=== PATIENT | female | born 1980 | race Caucasian/White ===

== ENCOUNTER 2018-09-06 15:58 | Inpatient (IN) ==
[2018-09-06] MEDS ORDERED: Bisacodyl 10 MG Supp RECTAL PRN (17:40)
[2018-09-06] MEDS ORDERED: Aluminum/Magnesium/Simethacone Susp 30 ML UDC PO PRN (17:40)
[2018-09-06] MEDS: Levothyroxine 75 MCG Tablet PO SCH (18:44)
[2018-09-06] MEDS: amLODIPine 5 MG Tablet PO SCH (18:50)
[2018-09-06] MEDS: Senna/Docusate Sodium 8.6/50 MG Tablet PO SCH (22:43)
[2018-09-06] MEDS: Carvedilol 6.25 MG Tablet PO SCH (22:43)
[2018-09-06] MEDS: QUEtiapine 25 MG Tablet PO SCH (22:48)
[2018-09-07] MEDS: Levothyroxine 75 MCG Tablet PO SCH (06:37)
[2018-09-07] MEDS: Senna/Docusate Sodium 8.6/50 MG Tablet PO SCH ×2 (08:52→21:29)
[2018-09-07] MEDS: QUEtiapine 25 MG Tablet PO SCH ×2 (08:52→21:30)
[2018-09-07] MEDS: Carvedilol 6.25 MG Tablet PO SCH ×2 (08:52→21:30)
[2018-09-07] MEDS: amLODIPine 5 MG Tablet PO SCH (08:53)
[2018-09-07 10:17] LABS: Anion Gap 8 meq/L (5-15); Blood Urea Nitrogen 5 mg/dL (7-18); Calcium 8.3 mg/dL (8.5-10.1); Carbon Dioxide 25.4 meq/L (21.0-32.0); Chloride 110 meq/L (98-107); Glomerular Filtration Rate Greater Than 89 mL/min (>89); Glucose,Random 84 mg/dL (74-106); Potassium 3.4 meq/L (3.5-5.1); Sodium 143 meq/L (136-145)
[2018-09-07 10:19] LABS: Cholesterol 154 mg/dL (120-200)
[2018-09-07 10:22] LABS: Chol/HDL Ratio 6.66 Ratio; HDL Cholesterol 23.1 mg/dL (40.0-60.0); LDL Cholesterol,Calculated 94 mg/dL (0-99); Triglycerides 187 mg/dL (42-150)
--- NOTE | 2018-09-07 11:24 | P.HPPSY ---
Provisional Diagnosis Admission Date: September 06, 2018 16:20 [place] I.: Unspecified psychosis Competence Certification of Person's Competence To Provide Express and Informed Consent I have personally examined Lorraine Abernathy, a person being served at [facility] on, September 07, 2018 1118. Express and informed consent means consent voluntarily given in writing, by a competent person, after sufficient explanation and disclosure of the subject matter involved to enable the person to make a knowing and willful decision without any element of force, fraud, deceit, duress, or other form of constraint or coercion. This person is 18 years of age or older, is not now known to be incompetent to consent to treatment with a guardian advocate, and does not have a health care surrogate or proxy currently making medical treatment decisions. I have found this person to be one of the following: [] Competent to provide express and informed consent, as defined above, for voluntary admission to this facility and is competent to provide express and informed consent for treatment. He/she has the consistent capacity to make well reasoned, willful, and knowing decisions concerning his or her medical or mental health treatment. The person fully and consistently understands the purpose of the admission for examination/placement and is fully capable of personally exercising all rights assured [place] Incompetent to provide express and informed consent to voluntary admission, and this is incompetent to provide express and informed consent to treatment. The person must be transferred to involuntary status and a petition for a guardian advocate filed with the Circuit Court. [x] Refusing to provide express and informed consent to voluntary admission but is competent to provide express and informed consent for treatment. The person must be discharged or transferred to involuntary status. Form shall be completed within 24 hours of a person's arrival at the receiving facility and filed in the clinical record of each person: 1. Admitted on a voluntary basis 2. Permitted to provide express and informed consent to his/her own treatment 3. Allowed to transfer from involuntary to voluntary status 4. Prior to permitting a person to consent to his or her own treatment after having been previously found incompetent to consent to treatment. History of Present Illness Capacity: Has capacity History of Present Illness: 08/30/2018 The patient is a 38-year-old woman, domiciled in [place], single, no kids, employed, with a psychiatric history of anxiety, no previous psychiatric hospitalizations, no pre-suicide attempts, alcohol use disorder, she is on Xanax 1 mg 3 times daily prescribed by PCP, medical history of hypertension, who has been depressed recently after the of her father presents for an evaluation of altered mental status. Her friend and neighbor went over to check on her and found her on the ground. She states the dog that was in the house had peed in the house multiple times which is unusual. She was last seen normal Saturday which was 5 days ago. The patient apparently has prescriptions for Xanax. No other history is readily available as the patient' s initial GCS for paramedics was 11. In the emergency department her GCS was 10 and she was intubated for an airway protection by ED attending. Patient was intubated yesterday. Renal function is improving with Cr: 2.45 from 3.57. She was consulted to psychiatry to address suicidal ideation. On my psychiatric evaluation I found the patient alert, calm, superficially cooperative. The patient is quite confused, she answered questions, but she seems to be not reliable. She tells me that she is in the brother house. Tells me that she is now in [facility] and she is here at her brother's house in a family meeting. She does not know the reason of hospitalization. Patient is completely disoriented in time and place. She tells me that we are in [birth year], 1991. She does report to be in a good mood, he denies use of alcohol and misuse of Xanax. She actually tells me that she does not use any alcohol. She denies suicidal and homicidal ideation, she denies visual and auditory hallucinations. At times the patient seems to be a little bit expansive, with cleopatra loosening of associations and poor contact with reality. There is also some attention deficit and fluctuation of consciousness. Collateral information from her sister Daksha Hernandez, , who reports that the patient has been depressed since April when her father . She says that her sister has been down the heel, drinking more alcohol every day and most probably misusing Xanax. She reports that this is the first time that the patient becomes so altered and psychotic. She says that the patient does not have any reports a psychiatric history. 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 09/03/2018 The patient was seen today for psychiatric reevaluation. She was in the process of getting physical therapy. Ro, next of kin, was at bedside. My psychiatric evaluation the patient continues to show labile mood, she seems to be more organized and cooperative than before, but still disorganized, with moments of confusion, tangentiality, delusional thinking, but able to report good mood, denies depression, denies anxiety, denies melina and psychosis. She denies suicidal and homicidal ideation, denies visual and auditory hallucinations. As per Ro, the patient definitely much improved , she clarifies that the patient has being increasingly drinking more alcohol lately, she has been depressed the last month, but usually the patient has a very good sense of humor. She also confirms that the patient at times seems to be quite confused and psychotic. 09/06/2017 patient was seen today for psychiatric evaluation in the [facility] psych unit. The patient continues to be disorganized, quite tangential, with a very inappropriate affect. She reports to feel very happy, she says that she does not remember the reason she is here for. She says that she is here to pickle cutter her dog and basis of friends. She is oriented in person, disoriented in time and place. She thinks that we are in June 1984. On Mini-Mental the patient is able to repeat 3 words, remembered 2 of then 5 minutes later. She shows a good registration, good abstraction, naming, but decreased concentration , impaired executive function. Final score is 22/30. She denies suicidal and homicidal ideation, she denies visual and auditory hallucinations. I try to speak with the patient about suicidal attempt by overdosing with alcohol and Xanax, but she is unable to recall any information about that event. PPHx: Anxiety, she is on Xanax 1 mg 3 times daily, prescribed by PCP, no pre- suicide attempts, no previous psychiatric hospitalization PMHx: Hypertension Family Hx: No family psychiatric Substance Hx: She drinks alcohol Social Hx: Patient was born and raised in [facility], she is single , domiciled in [place], no kids, employed, her highest level of education is a nursing degree - Inpatient Certification I certify that the inpatient services were ordered in accordance with Medicare regulations governing the order. This includes certification that hospital inpatient services are reasonable and necessary and in the case of services not specified as inpatient-only under 42 CFR 419.22(n), that they are appropriately provided as inpatient services in accordance to with the 2-midnight benchmark under 43 CFR 412.3(e) I certify that inpatient psychiatric hospital services are medically necessary. Evaluation and treatment and/or diagnostic testing are expected to improve the patient's condition. The patient needs on a daily basis, active treatment furnished directly by or requiring the supervision of inpatient psychiatric facility personnel. Estimated Total Length of Stay (Days): 7 Plans for Post Hospital Care: Home Review of Systems All other systems reviewed negative except as stated in HPI Psychiatric: Reports confusion, Reports irritability PMFSH - History History Provided By: Patient, Medical Record - Medical History Medical History: Medical History (Last Updated 09/06/18 @ 12:31 by Sandra Berry) Alcohol abuse Anxiety Depression Medical history unknown Surgical history unknown - Tobacco History Second Hand Smoke Exposure: No Smoking Status: Unknown if ever smoked - Alcohol History How Often Do You Have a Drink Containing Alcohol: Unable to Obtain - Substance Use History Substance History: No History of Abuse, Unable to Obtain - Travel History History of Recent Travel: No - Immunization History Tetanus Immunization: Unable to Assess Hx Influenza Vaccine This Season: Unable to Assess Medications and Allergies Active Medications: Active Medications Al Hydrox/Mg Hydrox/Simethicone (Mag-Al Plus Susp Liq) 30 ml PO Q6H PRN PRN Reason: DYSPEPSIA Al Hydroxide/Mg Hydroxide (Milk Of Magnesia Liq) 30 ml PO Q12H PRN PRN Reason: Mild Constipation Amlodipine Besylate (Norvasc) 5 mg PO DAILY [facility] Last Admin: 09/07/18 08:53 Dose: Not Given Bisacodyl (Dulcolax Supp) 10 mg RECTAL DAILY PRN PRN Reason: SEVERE CONSITIPATION Carvedilol (Coreg) 6.25 mg PO BID [facility] Last Admin: 09/07/18 08:52 Dose: 6.25 mg Clonidine HCl (Catapres) 0.2 mg PO TID [facility] Last Admin: 09/07/18 08:53 Dose: Not Given Lactulose (Lactulose Liq) 30 ml PO DAILY PRN PRN Reason: SEVERE CONSITIPATION Levothyroxine Sodium (Synthroid) 75 mcg PO DAILY@0600 [facility] Last Admin: 09/07/18 06:37 Dose: 75 mcg Quetiapine Fumarate (Seroquel) 25 mg PO BID [facility] Last Admin: 09/07/18 08:52 Dose: 25 mg Senna/Docusate Sodium (Pamela-Colace) 1 tab PO BID [facility] Last Admin: 09/07/18 08:52 Dose: 1 tab Sennosides (Senokot) 17.2 mg PO Q12H PRN PRN Reason: Moderate Constipation Thiamine HCl (Vitamin B1) 100 mg PO DAILY [facility] Last Admin: 09/07/18 08:51 Dose: 100 mg Allergies Allergy/AdvReac Type Severity Reaction Status Date / Time No Known Allergies Allergy Uncoded 04/18/15 15:02 Home Medications Medication Instructions Recorded Confirmed Type carvedilol 6.25 mg PO BID 09/03/18 09/03/18 History levothyroxine 75 mcg PO DAILY 09/03/18 09/03/18 History Results - Labs CBC & Chem 7: 09/07/18 09:16 Labs: Laboratory Results - last 24 hr 09/07/18 09:16 Sodium 143 Potassium 3.4 L Chloride 110 H Carbon Dioxide 25.4 Anion Gap 8 BUN 5 L Creatinine 0.71 Estimated GFR Greater than 89 Random Glucose 84 Calcium 8.3 L Triglycerides 187 H Cholesterol 154 LDL Cholesterol, Calc 94 HDL Cholesterol 23.1 L Cholesterol/HDL Ratio 6.66 Exam Vital signs: Vital Signs 09/06/18 18:04 Temperature 98.8 F Pulse Rate 102 H Respiratory Rate 18 Blood Pressure 132/92 H Pulse Oximetry 97 Mental Status Examination Appearance: Appropriate Consciousness: Alert Orientation: Person Motor Activity: Normal gait Speech: Unremarkable Language: Adequate Fund of Knowledge: Adequate Attention and Concentration: Adequate Memory: Impaired Mood: Appropriate Affect: Appropriate Thought Process & Associations: Loose associations, Disorganized Thought Content: Appropriate Hallucination Type: None Delusion Type: None, Bizarre Suicidal Ideation: No Suicidal Plan: No Suicidal Intention: No Homicidal Ideation: No Homicidal Plan: No Homicidal Intention: No Insight: Poor Judgment: Poor Assessment and Plan - Plan Plan: On my psychiatric evaluation today I find a patient that is just superficially cooperative, guarded, quite confused and disorganized. The patient is unable to tell me the reason of her hospitalization, she is oriented in person, but completely disoriented in time and place, she is very talkative, but most of her communication is through confabulations. She has loosening of associations , poor contact with the reality, attention deficit, no excessive fluctuation of consciousness. She denies suicidal and homicidal ideation, she denies auditory hallucinations, denies visual hallucinations, however the nurse in charge states that the patient has been responding to internal stimuli and talking with people that are not present. Current presentation seems to be related with new onset psychosis that could be secondary to alcohol/benzodiazepine withdrawal, but a primary psychotic illness decompensation need to be rule out. As per sister collateral information, the patient has been depressed for the last 2 months after the of her father. He has a psychiatric history of anxiety, alcohol use disorder, but no previous reported psychiatric admissions or suicidal attempts. At this moment the patient will continue on the Lynn act , given her level of psychosis she is considered to be a danger to self and others, but also high risk of self neglecting behavior. Transfer the patient to psychiatry was medically stable. We will start Seroquel 25 mg twice daily for psychosis. Order CIWA protocol for benzodiazepine alcohol induced withdrawal. Can use Haldol 5 mg IM/IV every 8 hours as needed aggressive behavior or agitation. QTC is 450 now. If QTC increases over 460 I recommend to stop antipsychotics. Justification for Continued Inpatient Stay: Continue admission
[2018-09-07 12:04] LABS: Hemoglobin A1c 4.9 % (4.3-6.0)
--- NOTE | 2018-09-07 14:07 | P.CONIM ---
History of Present Illness Service: [facility] Consult date: 09/07/18 Requesting Physician: Nehemias Ortega Reason for Consult: Tachycardia, AMS Primary Care Provider: UNKNOWN Chief Complaint: Leg pain, shortness of breath History of Present Illness: 38-year-old female with history of hypertension, hypothyroidism, anxiety, depression, alcohol abuse, initially admitted to [facility] on 08/26/18 after being found on the ground with altered mental status, previously last seen normal on 08/22/18. During the course of hospitalization, she was intubated, GCS of 10, admitted to ICU for possible Xanax overdose, alcohol intoxication, and rhabdomyolysis. Patient was extubated and transferred to hospital service on 08/30/18, then discharged to inpatient med psych unit on 09/06/18. Hospitalist consulted for medical management of tachycardia and altered mental status. The patient is seen sitting upright in bed awake, alert, oriented to self only. She cannot recall events leading up to her admission. She is very tangential and repetitive with conversation making her an unreliable historian therefore most history obtained from nursing staff and EMR. She also states that she is although prior beta-hCG in the chart is negative. Patient does endorse current shortness of breath after attempting ambulation to the bathroom. She states she feels "worn out". States that her oxygen helps her. She reports a cough, occasionally productive of clear sputum. Denies fevers or chills. Denies any chest pain or palpitations. She also complains of bilateral leg/feet swelling with mild calf pain. She states normally her legs are very thin. She denies any abdominal pain, nausea/vomiting. She does report some loose stools. She is tolerating oral intake. She has no other medical complaints at this time. Review of Systems Review of Systems: all other systems reviewed are negative [facility] Medical History Medical History Alcohol abuse (Acute) Anxiety (Acute) Depression (Acute) Medical history unknown (Inactive) Surgical history unknown (Inactive) Family History Family History Other Family history normal Social History Social History Substance History: No History of Abuse and Unable to Obtain Second Hand Smoke Exposure: No Smoking Status: Former smoker Tobacco Type: Cigarettes Cigarettes Per Day: 15 Smoking End Date: Quit 10 years ago How Often Do You Have a Drink Containing Alcohol: Unable to Obtain Hx Recent Travel: No Immunization History Tetanus Immunization: Unable to Assess Hx Influenza Vaccine This Season: Unable to Assess Medications and Allergies Allergies Allergy/AdvReac Type Severity Reaction Status Date / Time No Known Allergies Allergy Uncoded 04/18/15 15:02 Home Medications Medication Instructions Recorded Confirmed Type carvedilol 6.25 mg PO BID 09/03/18 09/03/18 History levothyroxine 75 mcg PO DAILY 09/03/18 09/03/18 History Active Medications: Active Medications Al Hydrox/Mg Hydrox/Simethicone (Mag-Al Plus Susp Liq) 30 ml PO Q6H PRN PRN Reason: DYSPEPSIA Al Hydroxide/Mg Hydroxide (Milk Of Magnesia Liq) 30 ml PO Q12H PRN PRN Reason: Mild Constipation Amlodipine Besylate (Norvasc) 5 mg PO DAILY [facility] Last Admin: 09/07/18 08:53 Dose: Not Given Bisacodyl (Dulcolax Supp) 10 mg RECTAL DAILY PRN PRN Reason: SEVERE CONSITIPATION Carvedilol (Coreg) 6.25 mg PO BID [facility] Last Admin: 09/07/18 08:52 Dose: 6.25 mg Clonidine HCl (Catapres) 0.2 mg PO TID [facility] Last Admin: 09/07/18 13:40 Dose: 0.2 mg Lactulose (Lactulose Liq) 30 ml PO DAILY PRN PRN Reason: SEVERE CONSITIPATION Levothyroxine Sodium (Synthroid) 75 mcg PO DAILY@0600 [facility] Last Admin: 09/07/18 06:37 Dose: 75 mcg Quetiapine Fumarate (Seroquel) 25 mg PO BID [facility] Last Admin: 09/07/18 08:52 Dose: 25 mg Senna/Docusate Sodium (Pamela-Colace) 1 tab PO BID [facility] Last Admin: 09/07/18 08:52 Dose: 1 tab Sennosides (Senokot) 17.2 mg PO Q12H PRN PRN Reason: Moderate Constipation Thiamine HCl (Vitamin B1) 100 mg PO DAILY [facility] Last Admin: 09/07/18 08:51 Dose: 100 mg Physical Exam Vital signs: Vital Signs 09/06/18 18:04 Temperature 98.8 F Pulse Rate 102 H Respiratory Rate 18 Blood Pressure 132/92 H Pulse Oximetry 97 Narrative: GENERAL: Well-nourished, well-developed middle-aged female patient in [facility]. SKIN: Warm and dry. No rash. HEENT: Normocephalic. Atraumatic. Pupils equal and round. Mucous membranes pink and moist. NECK: Supple. Trachea midline. CARDIOVASCULAR: Mildly tachycardic, regular rhythm. No murmur appreciated. RESPIRATORY: No accessory muscle use. Clear to auscultation. Breath sounds equal bilaterally. GASTROINTESTINAL: Abdomen soft, non-tender, nondistended. Normoactive bowel sounds x4. MUSCULOSKELETAL: No obvious deformities. Trace bilateral pedal/ankle edema, bilateral calves nontender to palpation. NEUROLOGICAL: Awake and alert. No obvious cranial nerve deficits. Moving all extremities spontaneously with generalized weakness. Normal speech. PSYCHIATRIC: Tangential and disorganized thoughts and conversation. Results Labs CBC & Chem 7: 09/07/18 09:16 Assessment and Plan Plan 38-year-old female with history of hypertension, hypothyroidism, anxiety, depression, alcohol abuse, initially admitted to [facility] on 08/26/18 after being found on the ground with altered mental status, previously last seen normal on 08/22/18. During the course of hospitalization, she was intubated , GCS of 10, admitted to ICU for possible Xanax overdose, alcohol intoxication, and rhabdomyolysis. Patient was extubated and transferred to hospital service on 08/30/18, then discharged to inpatient med psych unit on 09/06/18. Hospitalist consulted for medical management of tachycardia and altered mental status. 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 Alcohol Withdrawal: per EMR, patient has h/o alcohol abuse -Continue [facility] Protocol -Management per psychiatry -Check LFTs/ammonia, possible hepatic encephalopathy with hx of alcohol abuse Rhabdomyolysis/BECK/Electrolyte Abnormalities: resolved, likely secondary to alcohol abuse/suspected Xanax overdose/unknown downtime -Monitor renal function -Monitor electrolytes and replenish as needed -09/07: K 3.4; Given 20meq PO KCl x1 -Repeat BMP in am Tachycardia: Sinus tachycardia on previous EKGs, reviewed by me -Likely due to multiple factors as stated above including dehydration, deconditioning, electrolyte abnormalities -Encourage adequate oral hydration -Echocardiogram 09/01 unremarkable with normal ejection fraction 55-60% -Continue on coreg 6.25mg po bid, consider increasing dose -HR stable in upper 90s to low 100s, continue to monitor Transaminitis: likely secondary to alcohol abuse -Abdominal U/S 08/27/18 showed hepatic steatosis, small amount of debris within an otherwise normal-appearing gallbladder -Hepatitis panel was negative -Avoid hepatotoxins -Improving, continue to monitor LFTs Sacral Decubitus Ulcer: patient has sacral wound, unknown duration -Wound Care consulted; appreciate recommendations -Reposition every 2 hours Generalized weakness: Likely secondary to recent ICU admission -PT consulted; patient is currently moderate to dependent for mobility; recommends rehab and Neurology consult for loss of proprioception right lower extremity with ROM -Consult neurology -OT consulted; patient is currently minimum to maximum depending on ADL task ; recommends rehab Bilateral leg pain/edema: Patient reports BLE pain and trace edema -09/07: BLE Doppler was negative for DVT -09/07: D-Dimer elevated at 1.91 -CT-PA ordered stat, pending - will start on full strength Lovenox 70mg q12h until PE ruled out Loose stools: patient reports continued loose stools -C.diff negative on 08/28 and 09/02 -Check stool enteric pathogens -Lactinex bid Hypertension: Improving -Continue Norvasc 5mg qd and Coreg 6.25mg bid -Monitor BP, adjust antihypertensives as needed Hypothyroidism:chronic -Continue patient's Synthroid DVT Prophylaxis: Lovenox sq
--- NOTE | 2018-09-07 15:27 | P.CONIM ---
History of Present Illness Service: [facility] Consult date: 09/07/18 Requesting Physician: Nehemias Ortega Reason for Consult: Tachycardia and AMS Primary Care Provider: UNKNOWN Chief Complaint: Leg pain History of Present Illness: Ms. Abernathy is a 38 year old female with past medical history of HTN, hypothyroidism, depression, anxiety and alcohol abuse who was brought to ED on 08/26/18 after friends and neighbors found her on the ground with AMS and last known time seen normal was 08/22/18. Patient was intubated in the ED for GCS of 10 and admitted to the ICU for possible xanax overdose, alcohol intoxication, and rhabdomyolysis. The patient was extubated and care was then transferred to hospitalist service on 08/30/18, then transferred to inpatient med/ pysch unit on 09/06/18. Hospitalist consulted for medical management. The patient was seen in her room lying in bed on the med/psych unit. The patient is awake, alert, and oriented to name and , however disoriented to time and place. The patient is tangential and repetitive with conversation and an extremely unreliable historian therefore most of the history was obtained from the EMR. The patient states she is doing good. She complains of 7/10 pain to bilateral lower extremities. The patient reports she has shooting pain from the bilateral hips to bilateral knees with aggravating ache from bilateral hips to bilateral ankles. The patient endorses shortness of breath without chest pain or palpitations. She reports intermittent chills without fever. She denies any nausea or vomiting, however continues to have loose stools and believes she is . The patient denies any additional concerns or complaints. Review of Systems All other systems reviewed negative except as stated in HPI PMFSH - History History Provided By: Patient, Medical Record - Medical History Medical History: Medical History (Last Reviewed 09/07/18 @ 15:23 by Alexander Quintero) Alcohol abuse Anxiety Depression Medical history unknown Surgical history unknown - Family History Family History: Family History (Last Reviewed 09/07/18 @ 16:13 by Romy Howard) Other Family history normal - Social History I have reviewed the patient's Social History: Yes - Tobacco History Second Hand Smoke Exposure: No Smoking Status: Former smoker Tobacco Type: Cigarettes Cigarettes Per Day: 15 Smoking End Date: Quit 10 years ago - Alcohol History How Often Do You Have a Drink Containing Alcohol: Unable to Obtain - Substance Use History Substance History: No History of Abuse, Unable to Obtain - Travel History History of Recent Travel: No - Immunization History Tetanus Immunization: Unable to Assess Hx Influenza Vaccine This Season: Unable to Assess Medications and Allergies Active Medications: Active Medications Al Hydrox/Mg Hydrox/Simethicone (Mag-Al Plus Susp Liq) 30 ml PO Q6H PRN PRN Reason: DYSPEPSIA Al Hydroxide/Mg Hydroxide (Milk Of Magnesia Liq) 30 ml PO Q12H PRN PRN Reason: Mild Constipation Amlodipine Besylate (Norvasc) 5 mg PO DAILY [facility] Last Admin: 09/07/18 08:53 Dose: Not Given Bisacodyl (Dulcolax Supp) 10 mg RECTAL DAILY PRN PRN Reason: SEVERE CONSITIPATION Carvedilol (Coreg) 6.25 mg PO BID [facility] Last Admin: 09/07/18 08:52 Dose: 6.25 mg Clonidine HCl (Catapres) 0.2 mg PO TID [facility] Last Admin: 09/07/18 13:40 Dose: 0.2 mg Lactulose (Lactulose Liq) 30 ml PO DAILY PRN PRN Reason: SEVERE CONSITIPATION Levothyroxine Sodium (Synthroid) 75 mcg PO DAILY@0600 [facility] Last Admin: 09/07/18 06:37 Dose: 75 mcg Quetiapine Fumarate (Seroquel) 25 mg PO BID [facility] Last Admin: 09/07/18 08:52 Dose: 25 mg Senna/Docusate Sodium (Pamela-Colace) 1 tab PO BID [facility] Last Admin: 09/07/18 08:52 Dose: 1 tab Sennosides (Senokot) 17.2 mg PO Q12H PRN PRN Reason: Moderate Constipation Thiamine HCl (Vitamin B1) 100 mg PO DAILY [facility] Last Admin: 09/07/18 08:51 Dose: 100 mg Allergies Allergy/AdvReac Type Severity Reaction Status Date / Time No Known Allergies Allergy Uncoded 04/18/15 15:02 Home Medications Medication Instructions Recorded Confirmed Type carvedilol 6.25 mg PO BID 09/03/18 09/03/18 History levothyroxine 75 mcg PO DAILY 09/03/18 09/03/18 History Physical Exam Vital signs: Vital Signs 09/06/18 18:04 Temperature 98.8 F Pulse Rate 102 H Respiratory Rate 18 Blood Pressure 132/92 H Pulse Oximetry 97 Narrative: GENERAL: Well-nourished, confused pleasant middle-aged female patient in [facility]. SKIN: Warm and dry. No rash. Left posterior upper arm and left anterior patiño has a wound with scabbing, no erythema or warmth noted. HEENT: Normocephalic. Atraumatic. Pupils equal and round. Mucous membranes pink and moist. CARDIOVASCULAR: Regular rate at 84 and rhythm. No murmur appreciated. RESPIRATORY: No accessory muscle use. Clear to auscultation. Breath sounds equal bilaterally. GASTROINTESTINAL: Abdomen soft, non-tender, nondistended. Normoactive bowel sounds x4. MUSCULOSKELETAL: No obvious deformities. Extremities without clubbing, cyanosis , or edema. Pain upon palpation and positive Rafi's sign on bilateral lower extremities with L > R. NEUROLOGICAL: Awake, alert and oriented to name and . No obvious cranial nerve deficits. BUE 4/5 strength and BLE 3/5 strength. Generalized weakness. Normal speech. PSYCHIATRIC: Tangential with repetitive conversation. Appropriate mood and affect; insight and judgment impaired. Results - Labs CBC & Chem 7: 09/07/18 09:16 Labs: Laboratory Results - last 24 hr 09/07/18 09/07/18 09:16 09:16 Sodium 143 Potassium 3.4 L Chloride 110 H Carbon Dioxide 25.4 Anion Gap 8 BUN 5 L Creatinine 0.71 Estimated GFR Greater than 89 Random Glucose 84 Hemoglobin A1c 4.9 Calcium 8.3 L Triglycerides 187 H Cholesterol 154 LDL Cholesterol, Calc 94 HDL Cholesterol 23.1 L Cholesterol/HDL Ratio 6.66 Assessment and Plan - Plan 38 year old female with past medical history of HTN, hypothyroidism, depression , anxiety and alcohol abuse who was brought to ED on 08/26/18 after friends and neighbors found her on the ground with AMS and last known time seen normal was 08/22/18. Patient was intubated in the ED for GCS of 10 and admitted to the ICU for possible Xanax overdose, alcohol intoxication, and rhabdomyolysis. The patient was extubated and care was transferred to hospitalist service on 08/30/18 , then transferred to inpatient med/psych unit on 09/06/18. 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 Benzodiazepine overdose/toxic encephalopathy -Continue management per psychiatry -ST consulted; patient has cognitive deficits and requires a mechanical soft diet and nectar thick liquids -S/P lumbar puncture on 09/04; CSF studies unremarkable -Herpes PCR was negative -EEG- minimal slowing -MRI brain-negative Acute Alcohol Withdrawal: per EMR, patient has h/o alcohol abuse -Continue [facility] Protocol -Continue management per psychiatry Rhabdomyolysis/BECK/Electrolyte Abnormalities: resolved, likely secondary to alcohol abuse/suspected Xanax overdose/unknown downtime -Monitor renal function -Monitor electrolytes and replenish as needed -09/07: K 3.4; K-Dur 20meq PO x1 ordered Tachycardia: Sinus tachycardia on previous EKGs -Likely due to multiple factors as stated above -09/07: HR 84 and regular -Encourage adequate oral hydration -Echocardiogram with normal ejection fraction Transaminitis: likely secondary to alcohol abuse -Improving, continue to monitor LFTs -Hepatitis panel was negative Sacral Decubitus Ulcer: patient has sacral wound -Wound Care consulted; appreciate recommendations -Reposition every 2 hours Generalized weakness: Likely secondary to recent ICU admission -PT consulted; patient is currently moderate to dependent for mobility; recommends rehab and Neurology consult for loss of proprioception right lower extremity with ROM -OT consulted; patient is currently minimum to maximum depending on ADL task ; recommends rehab Bilateral leg pain/edema: Patient reports BLE pain and edema; Bilateral positive Rafi's sign -09/07: BLE Doppler was negative for DVT -09/07: D-Dimer at 1.91 -CT Pulmonary stat ordered, pending -Start Lovenox 70mg bid until PE ruled out Loose stools: patient reports continued loose stools -Check stool studies -Lactinex prn -Encourage adequate oral intake Hypertension: Improving -Continue Norvasc 5mg qd and Coreg 6.25mg bid -Monitor BP, adjust antihypertensives as needed Hypothyroidism:chronic -Continue patient's Synthroid DVT Prophylaxis: Lovenox 70mg bid - SCDs/TEDs Note prepared by HANNA [email or web address]. Discussed the patient with Romy Howard PA-C, agrees with above assessment and plan. See official note from Romy Howard PA-C.
--- NOTE | 2018-09-07 15:44 | US ---
EXAM DATE: 09/07/2018 3:25 PM EST AGE/SEX: 38 years / Female INDICATIONS: Bilateral leg swelling. CLINICAL DATA: This is the patient's initial encounter. Patient reports that signs and symptoms have been present for 1 day and indicates a pain score of 4/10. MEDICAL/SURGICAL HISTORY: . Alcohol abuse. Anxiety. Depression. None. COMPARISON: No prior exams available for comparison. TECHNIQUE: Venous ultrasound of both lower extremities was performed from the inguinal ligament to t he proximal calf. Real-time, color Doppler and spectral tracing, compression and augmentation techni ques were used. FINDINGS: Right Leg: Normal compression of the deep venous system from the inguinal region to the proximal ashley f. No echogenic clot is seen. Normal response of the venous system to augmentation and respiration. Left Leg: Normal compression of the deep venous system from the inguinal region to the proximal calf . No echogenic clot is seen. Normal response of the venous system to augmentation and respiration. Other: None. CONCLUSION: 1. The study is negative for bilateral lower extremity deep venous thrombosis. Electronically signed by: Guilherme Duran MD Board Certified Radiologist 09/07/2018 3:43 PM EST
[2018-09-07] MEDS ORDERED: Enoxaparin Inj 80 MG/0.8 ML Syringe SQ SCH (21:00)
--- NOTE | 2018-09-07 21:05 | CT ---
EXAM DATE: 09/07/2018 9:00 PM EST AGE/SEX: 38 years / Female INDICATIONS: Shortness of breath and chest pressure; rule out pulmonary embolus. CLINICAL DATA: This is the patient's initial encounter. Patient reports that signs and symptoms have been present for 1 day and indicates a pain score of 3/10. MEDICAL/SURGICAL HISTORY: . ETOH abuse None. RADIATION DOSE: 9.31 CTDI (mGy) COMPARISON: No prior exams available for comparison. TECHNIQUE: Volumetric scanning was performed using a multi-row detector CT scanner during bolus infu roger of 74 ml Omnipaque 350 (iohexol) nonionic water-soluble contrast as a single exam dose. The damaso a was post processed with a variety of visualization algorithms including full volume maximum intensi ty projection and sliding thin slab reformation. Using automated exposure control and adjustment of t he mA and/or kV according to patient size, radiation dose was kept as low as reasonably achievable to obtain optimal diagnostic quality images. DICOM format image data is available electronically for r eview and comparison. FINDINGS: Pulmonary Arteries: No filling defects are seen in the pulmonary arteries out to the subsegmental ve ssels. The left and right pulmonary arteries are normal in diameter. Lung: There is bibasilar infiltrates right greater than left pneumonia versus atelectasis.. Effusion: Small bilateral pleural effusions right greater than left Mediastinum: No evidence of mediastinal or hilar adenopathy. Other: The axilla is unremarkable. CONCLUSION: 1. Bilateral lower lobe infiltrates right greater than left. Bilateral pleural effusions right great er left. No evidence of pulmonary embolism Electronically signed by: Andrew Ramirez MD Board Certified Radiologist 09/07/2018 9:04 PM EST
[2018-09-07] MEDS: Lactobacillus Acidophilus/L. Spores Tablet PO SCH (21:30)
[2018-09-08] MEDS ORDERED: Vancomycin Consult Pharmacy OTHER ONE (00:41)
[2018-09-08] MEDS ORDERED: guaiFENesin/Dextromethorphan 200 MG/20 MG 10 ML UDC PO PRN (00:41)
[2018-09-08] MEDS ORDERED: Vancomycin Inj 1,000 MG in Sodium Chlor 0.9% Inj 250 ML IV.SIG ONE (03:00)
[2018-09-08] MEDS: Piperacil/Tazo 4.5 GM Premix 4.5 GM/100 ML BAG IV.SIG SCH ×4 (03:21→19:45)
[2018-09-08] MEDS: Azithromycin Inj 500 MG in Sodium Chlor 0.9% Inj 250 ML IV.SIG SCH (04:07)
[2018-09-08] MEDS: Levothyroxine 75 MCG Tablet PO SCH (05:28)
--- NOTE | 2018-09-08 08:20 | P.PNIM ---
Subjective Interval history: Follow-up visit for psychosis, tachycardia and healthcare associated pneumonia. Nurse reports patient continues to have liquid stools, low-grade temp overnight no other acute events. Patient is seen and examined sitting up in bed and appears to be in no acute distress with oxygen tubing on her chest. Patient reports that she remove this momentarily to fix something. She is alert and oriented to self, place, believes it is 2020. She continues to be very tangential with confusion. Patient reports some shortness of breath and cough. She reports that her cough is clear, encourage patient to get out of bed today. Physical Exam Vital signs: Vital Signs 09/07/18 17:13 09/07/18 20:00 09/08/18 00:00 Temperature 99 F 99 F 98.7 F Pulse Rate 98 H 96 H 95 H Respiratory Rate 16 18 18 Blood Pressure 163/88 H 135/86 118/79 Pulse Oximetry 96 95 95 09/08/18 06:00 Temperature 97.8 F Pulse Rate 91 H Respiratory Rate 21 Blood Pressure 130/84 Pulse Oximetry 97 Intake & Output 09/07/18 09/08/18 09/08/18 18:59 06:59 18:59 Intake Total 240 / 240 Balance 240 / 240 Weight 67.1 kg 65.4 kg Intake: Oral 240 / 240 Other: # Voids 2 Date of Last Bowel Movement 09/07/18 # Bowel Movements 1 Weight On Admission 67.1 kg Narrative: GENERAL: Well-nourished, well-developed middle-aged female patient in [facility]. SKIN: Warm and dry. No rash. HEENT: Normocephalic. Atraumatic. Pupils equal and round. Mucous membranes pink and moist. NECK: Supple. Trachea midline. CARDIOVASCULAR: regular rhythm and rate. No murmur appreciated. RESPIRATORY: No accessory muscle use. Clear to auscultation. Breath sounds equal bilaterally. 2L NC. GASTROINTESTINAL: Abdomen soft, non-tender, nondistended. Normoactive bowel sounds x4. MUSCULOSKELETAL: No obvious deformities. No calf tenderness. NEUROLOGICAL: Awake and alert, oriented to self and place. No obvious cranial nerve deficits. Moving all extremities spontaneously with generalized weakness. Normal speech. PSYCHIATRIC: Tangential and disorganized thoughts and conversation. Results Labs CBC & Chem 7: 09/08/18 09:25 09/08/18 09:15 Imaging Imaging: Impressions Chest CTA 09/07/18 00:00 CONCLUSION: 1. Bilateral lower lobe infiltrates right greater than left. Bilateral pleural effusions right greater left. No evidence of pulmonary embolism Venous Doppler Study 09/07/18 00:00 CONCLUSION: 1. The study is negative for bilateral lower extremity deep venous thrombosis. Assessment and Plan Plan 38-year-old female with history of hypertension, hypothyroidism, anxiety, depression, alcohol abuse, initially admitted to [facility] on 08/26/18 after being found on the ground with altered mental status, previously last seen normal on 08/22/18. During the course of hospitalization, she was intubated , GCS of 10, admitted to ICU for possible Xanax overdose, alcohol intoxication, and rhabdomyolysis. Patient was extubated and transferred to hospital service on 08/30/18, then discharged to inpatient med psych unit on 09/06/18. Hospitalist consulted for medical management of tachycardia and altered mental status. 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 If needed consider Xifaxin if ammonia continues to trend up. -possible hepatic encephalopathy with hx of alcohol abuse Rhabdomyolysis/BECK/Electrolyte Abnormalities: resolved, likely secondary to alcohol abuse/suspected Xanax overdose/unknown downtime -Creatinine stable - K 3.3, replace orally with 40Meq, K recheck in a.m. Tachycardia: Sinus tachycardia on previous EKGs, reviewed by me -Likely due to multiple factors as stated above including dehydration, deconditioning, electrolyte abnormalities -Encourage adequate oral hydration -Echocardiogram 09/01 unremarkable with normal ejection fraction 55-60% -Continue on coreg 6.25mg po bid - HR improved, continue to monitor Transaminitis: likely secondary to alcohol abuse -Abdominal U/S 08/27/18 showed hepatic steatosis, small amount of debris within an otherwise normal-appearing gallbladder -Hepatitis panel was negative -Avoid hepatotoxins -Improving, continue to monitor LFTs, mildly elevated T-bili US with no noted stones, asymptomatic. Sacral Decubitus Ulcer: patient has sacral wound, unknown duration -Wound Care consulted; appreciate recommendations -Reposition every 2 hours Generalized weakness: Likely secondary to recent ICU admission -PT consulted; patient is currently moderate to dependent for mobility; recommends rehab and Neurology consult for loss of proprioception right lower extremity with ROM -Consult neurology -OT consulted; patient is currently minimum to maximum depending on ADL task ; recommends rehab Bilateral leg pain/edema: Patient reports BLE pain and trace edema -09/07: BLE Doppler was negative for DVT -09/07: D-Dimer elevated at 1.91 -CTA chest negative for PE DC full strength Lovenox Possible HCAPNA Hx ICU stay on mechanical ventilation - WBC with slight improvement, but increase in neutrophil count, continues to be on NC, T-max overnight 99.0 - On IV Zosyn and Azithromycin - Schedule duonebs and PRN, IS - Encourage OOB and mobility Loose stools: patient reports continued loose stools -C.diff negative on 08/28 and 09/02 -Check stool enteric pathogens -Lactinex bid Hypertension: Improving -Continue Norvasc 5mg qd and Coreg 6.25mg bid -Monitor BP, adjust antihypertensives as needed Hypothyroidism:chronic -Continue patient's Synthroid DVT Prophylaxis: Lovenox sq Discussed Condition With: Patient and nurse Discharge Planning: Patient will most likely need rehab on discharge. Progress Note: Quality VTE Deep Vein Thrombosis/Pulmonary Embolism Present on Admission: No
[2018-09-08] MEDS: Carvedilol 6.25 MG Tablet PO SCH ×2 (08:54→21:41)
[2018-09-08] MEDS: QUEtiapine 25 MG Tablet PO SCH ×2 (08:54→21:41)
[2018-09-08] MEDS: amLODIPine 5 MG Tablet PO SCH (08:55)
[2018-09-08] MEDS: Senna/Docusate Sodium 8.6/50 MG Tablet PO SCH ×2 (08:55→21:41)
[2018-09-08] MEDS: Lactobacillus Acidophilus/L. Spores Tablet PO SCH ×2 (08:57→21:41)
[2018-09-08 09:42] LABS: Baso # (Auto) 0.1 th/mm3 (0.0-0.2); Baso % (Auto) 0.8 % (0.0-2.0); Eos # (Auto) 0.2 th/mm3 (0.0-0.4); Hematocrit 29.5 % (35.0-46.0); Hemoglobin 10.1 gm/dL (11.6-15.3); Lymph # (Auto) 1.1 th/mm3 (1.0-4.8); Lymph % (Auto) 10.8 % (9.0-44.0); Mean Corpuscular HGB Conc 34.3 % (32.0-36.0); Mean Platelet Volume 8.6 fL (7.0-11.0); Mono # (Auto) 0.9 th/mm3 (0.0-0.9); Mono % (Auto) 9.2 % (0.0-8.0); Neut # (Auto) 7.9 th/mm3 (1.8-7.7); Neut % (Auto) 77.2 % (16.0-70.0); Platelet Count 411 th/mm3 (150-450); Red Blood Count 2.73 mil/mm3 (4.00-5.30); Red Cell Distribution Width 13.9 % (11.6-17.2); White Blood Count 10.2 th/mm3 (4.0-11.0)
[2018-09-08 10:13] LABS: Albumin 2.3 g/dL (3.4-5.0); Anion Gap 10 meq/L (5-15); Aspartate Aminotransferase 69 U/L (15-37); Blood Urea Nitrogen 5 mg/dL (7-18); Calcium 8.2 mg/dL (8.5-10.1); Carbon Dioxide 23.8 meq/L (21.0-32.0); Chloride 109 meq/L (98-107); Glomerular Filtration Rate Greater Than 89 mL/min (>89); Glucose,Random 80 mg/dL (74-106); Magnesium 1.7 mg/dL (1.5-2.5); Potassium 3.3 meq/L (3.5-5.1); Sodium 143 meq/L (136-145)
[2018-09-08 10:14] LABS: Alanine Aminotransferase 48 U/L (10-53)
[2018-09-08 10:17] LABS: Alkaline Phosphatase 168 U/L (45-117); Total Protein 6.5 g/dL (6.4-8.2)
[2018-09-08] MEDS: Enoxaparin Inj 30 MG/0.3 ML Syringe SQ SCH (12:16)
--- NOTE | 2018-09-08 14:38 | P.CONPSY ---
Provisional Diagnosis Admission Date: September 06, 2018 16:20 [place] I.: Unspecified psychosis History of Present Illness Service: Psychiatry Consult date: 09/08/18 Requesting Physician: Nehemias Ortega Reason for Consult: Second opinion Primary Care Provider: UNKNOWN Chief Complaint: Leg pain, shortness of breath History of Present Illness: The patient is a 38-year-old woman, domiciled in [place], single, employed, with a psychiatric history of anxiety, no previous psychiatric hospitalizations, no pre-suicide attempts, alcohol use disorder, she is on Xanax 1 mg 3 times daily prescribed by PCP, medical history of hypertension, who has been depressed recently after the of her father presents for an evaluation of altered mental status and upon evaluation was noted to be confused , disorganized, disoriented, most of her communication is through confabulations with loosening of associations, poor contact with the reality, observed by nursing staff to be responding to internal stimuli and talking with people that are not present which patient was admitted to the inpatient psychiatry for further evaluation and management. As per chart patient previously transition from ICU to medical floor status post intubation, was managed for rhabdomyolysis as well, he continues to have noted confusion, disorientation, confabulation and loosening associations. Patient was seen with nurse graciela Butler lying in hospital bed, cooperative. Patient is alert and oriented x2, unable to recall events prior to her admission. Patient states that she has spoken to her aunt and uncle as well as her parents over the phone this morning. When asked about recent losses in the family or in the family she states that her grandmother in June and I making mention of her father recently passing away last year. Patient noted to be tangential, with nonsensical statements at times. Patient was unable to recall recent overdose but states having recalled having been brought to the hospital which she believes was in June which patient likely was describing events prior to her admission. Collateral information was taken by patient's sister, who stated concern of patient having been depressed after the passing of the father in late last year with the worry that patient may have attempted suicide via overdose by aware of the patient at this time is confused and disoriented, requiring more time for stabilization. Patient sister also agreed to be patient 's healthcare surrogate and guardian advocate and review of medication consent was carried out with her over the phone which patient would continue on quetiapine for mood stabilization. Review of Systems All other systems reviewed negative except as stated in HPI [facility] - History History Provided By: Patient, Family Member, Medical Record - Medical History Medical History: Medical History (Last Reviewed 09/07/18 @ 15:57 by Romy Howard) Alcohol abuse Anxiety Depression Medical history unknown Surgical history unknown - Family History Family History: Family History (Last Reviewed 09/07/18 @ 16:13 by Romy Howard) Other Family history normal - Tobacco History Second Hand Smoke Exposure: No Smoking Status: Former smoker Tobacco Type: Cigarettes Cigarettes Per Day: 15 Smoking End Date: Quit 10 years ago - Alcohol History How Often Do You Have a Drink Containing Alcohol: Unable to Obtain - Substance Use History Substance History: Active Abuse - Substance Use Type Alcohol Status: Active Frequency: 3-4 glasses of wine daily Comment: Patient stated she consumes 3-4 glasses of wine daily. - Travel History History of Recent Travel: No - Immunization History Tetanus Immunization: Unable to Assess Hx Influenza Vaccine This Season: Unable to Assess Medications and Allergies Active Medications: Active Medications Al Hydrox/Mg Hydrox/Simethicone (Mag-Al Plus Susp Liq) 30 ml PO Q6H PRN PRN Reason: DYSPEPSIA Al Hydroxide/Mg Hydroxide (Milk Of Magnesia Liq) 30 ml PO Q12H PRN PRN Reason: Mild Constipation Albuterol (Duoneb Neb (Prn)) 1 ampul NEB Q2HR NEB PRN PRN Reason: SHORTNESS OF BREATH/WHEEZING Albuterol (Duoneb Neb (Elisa)) 1 ampul NEB Q6HR WHILE AWAKE NEB ELISA Amlodipine Besylate (Norvasc) 5 mg PO DAILY [facility] Last Admin: 09/08/18 08:55 Dose: 5 mg Bisacodyl (Dulcolax Supp) 10 mg RECTAL DAILY PRN PRN Reason: SEVERE CONSITIPATION Carvedilol (Coreg) 6.25 mg PO BID [facility] Last Admin: 09/08/18 08:54 Dose: 6.25 mg Clonidine HCl (Catapres) 0.2 mg PO TID [facility] Last Admin: 09/08/18 08:54 Dose: 0.2 mg Enoxaparin Sodium (Lovenox Inj) 30 mg SQ DAILY [facility] Last Admin: 09/08/18 12:16 Dose: 30 mg Guaifenesin/Dextromethorphan (Robitussin Dm Liq) 10 ml PO Q4H PRN PRN Reason: cough interfering with rest Piperacillin/Tazobactam/Dextrose (Zosyn 4.5 Gm Premix) 4.5 gm in 100 mls @ 200 mls/hr IV.SIG Q6H [facility] Last Infusion: 09/08/18 12:18 Dose: 200 mls/hr Azithromycin 500 mg/ Sodium (Chloride) 250 mls @ 250 mls/hr IV.SIG Q24H [facility] Last Admin: 09/08/18 04:07 Dose: 250 mls/hr Lactobacillus Acidophilus (Lactinex) 1 tab PO BID [facility] Last Admin: 09/08/18 08:57 Dose: 1 tab Lactulose (Lactulose Liq) 30 ml PO DAILY PRN PRN Reason: SEVERE CONSITIPATION Levothyroxine Sodium (Synthroid) 75 mcg PO DAILY@0600 [facility] Last Admin: 09/08/18 05:28 Dose: 75 mcg Quetiapine Fumarate (Seroquel) 50 mg PO BID [facility] Senna/Docusate Sodium (Pamela-Colace) 1 tab PO BID [facility] Last Admin: 09/08/18 08:55 Dose: 1 tab Sennosides (Senokot) 17.2 mg PO Q12H PRN PRN Reason: Moderate Constipation Thiamine HCl (Vitamin B1) 100 mg PO DAILY [facility] Last Admin: 09/08/18 08:54 Dose: 100 mg Allergies Allergy/AdvReac Type Severity Reaction Status Date / Time No Known Allergies Allergy Uncoded 04/18/15 15:02 Home Medications Medication Instructions Recorded Confirmed Type carvedilol 6.25 mg PO BID 09/03/18 09/03/18 History levothyroxine 75 mcg PO DAILY 09/03/18 09/03/18 History Exam Vital signs: Vital Signs 09/07/18 17:13 09/07/18 20:00 09/08/18 00:00 Temperature 99 F 99 F 98.7 F Pulse Rate 98 H 96 H 95 H Respiratory Rate 16 18 18 Blood Pressure 163/88 H 135/86 118/79 Pulse Oximetry 96 95 95 09/08/18 06:00 09/08/18 08:20 09/08/18 10:00 Temperature 97.8 F 98.7 F Pulse Rate 91 H 75 86 Respiratory Rate 21 18 18 Blood Pressure 130/84 97/54 L Pulse Oximetry 97 95 Intake & Output 09/07/18 09/08/18 09/08/18 18:59 06:59 18:59 Intake Total 240 / 240 100 / 100 Balance 240 / 240 100 / 100 Weight 67.1 kg 65.4 kg Intake: IV 100 / 100 Zosyn 4.5 GM Premix 4.5 gm In 100 / 100 100 ml @ 200 mls/hr IV.SIG Q6H [facility] Rx#:[id number] Oral 240 / 240 Other: # Voids 2 Date of Last Bowel Movement 09/07/18 # Bowel Movements 1 Weight On Admission 67.1 kg Narrative: Patient not noted to be in acute distress, no gross motor abnormalities, no signs of tremor or EPS, no psychomotor agitation or retardation. - Constitutional no acute distress, cooperative Mental Status Examination Appearance: Appropriate Consciousness: Alert Orientation: Person Motor Activity: Normal gait Speech: Unremarkable Language: Adequate Fund of Knowledge: Adequate Attention and Concentration: Adequate Memory: Impaired Mood: Appropriate Affect: Appropriate Thought Process & Associations: Loose associations, Disorganized, Tangential Thought Content: Bizarre thinking Hallucination Type: None Delusion Type: Bizarre Suicidal Ideation: No Suicidal Plan: No Suicidal Intention: No Homicidal Ideation: No Homicidal Plan: No Homicidal Intention: No Insight: Poor Judgment: Poor Assessment and Plan - Assessment (1) Unspecified psychosis Code(s): F29 - Unspecified psychosis not due to a substance or known physiological condition Status: Acute - Plan Plan: I have seen and examined this patient, reviewed the documentation, and I agree and concur with Dr. Ortega assessment and plan. I have completed second opinion for the petition for involuntary hospitalization. Consult appreciated. We will continue to titrate quetiapine to 50 mg p.o. twice daily for psychosis and mood stabilization. We will continue to monitor mood and behavior. Patient to continue recommendations as per primary medical team, hospitalist input appreciated. Discharge planning in progress. Justification for Continued Inpatient Stay: At risk of further decompensation at lower level care.
[2018-09-08] MEDS ORDERED: Vancomycin Consult Pharmacy OTHER PRN (16:59)
[2018-09-08] MEDS: Vancomycin Inj 1,000 MG in Sodium Chlor 0.9% Inj 250 ML IV.SIG SCH (21:41)
[2018-09-09] MEDS: Azithromycin Inj 500 MG in Sodium Chlor 0.9% Inj 250 ML IV.SIG SCH (00:47)
[2018-09-09] MEDS: Piperacil/Tazo 4.5 GM Premix 4.5 GM/100 ML BAG IV.SIG SCH ×4 (01:57→20:26)
[2018-09-09] MEDS: Levothyroxine 75 MCG Tablet PO SCH (05:41)
[2018-09-09] MEDS: Vancomycin Inj 1,000 MG in Sodium Chlor 0.9% Inj 250 ML IV.SIG SCH ×2 (08:56→20:25)
[2018-09-09] MEDS: Senna/Docusate Sodium 8.6/50 MG Tablet PO SCH ×2 (08:58→20:25)
[2018-09-09] MEDS: Carvedilol 6.25 MG Tablet PO SCH ×2 (08:58→20:25)
[2018-09-09] MEDS: Enoxaparin Inj 30 MG/0.3 ML Syringe SQ SCH (08:58)
[2018-09-09] MEDS: amLODIPine 5 MG Tablet PO SCH (08:58)
[2018-09-09] MEDS: QUEtiapine 25 MG Tablet PO SCH ×2 (08:58→20:25)
[2018-09-09] MEDS: Lactobacillus Acidophilus/L. Spores Tablet PO SCH ×2 (08:58→20:25)
--- NOTE | 2018-09-09 11:48 | P.PNPSY ---
Subjective Remarks: patient seen for follow-up, chart reviewed. Discussion with nursing staff reported that patient had moments of confusion still, seen by neurology, continue with poor p.o. intake. Patient was found lying in hospital bed noted to be more alert today although continues with confusion, alert and oriented to year only, person and not to place. Patient also not oriented to situation. She states that she was having had an endoscopy yesterday, believe that she was discharged yesterday morning which her uncle had taken her to see her mother. Patient states that her mood has been "good" noted to be tangential and confabulating, states having had trouble going back to sleep last evening. Patient was encouraged to eat breakfast as a tray was in front of her stating that she is waiting for dinner. Counseling was later able to meet with patient which she had mentioned for the first time recalling the loss/ of her father briefly but then reverted back to confabulation and confusion. Review of Systems All other systems reviewed negative except as stated in HPI Mental Status Examination Appearance: Appropriate Consciousness: Alert Orientation: Person Motor Activity: Normal gait Speech: Unremarkable Language: Adequate Fund of Knowledge: Adequate Attention and Concentration: Adequate Memory: Impaired Mood: Appropriate Affect: Appropriate Thought Process & Associations: Loose associations, Disorganized (At times), Tangential Thought Content: Bizarre thinking Hallucination Type: None Delusion Type: Bizarre Suicidal Ideation: No Suicidal Plan: No Suicidal Intention: No Homicidal Ideation: No Homicidal Plan: No Homicidal Intention: No Insight: Poor Judgment: Poor Assessment and Plan - Assessment (1) Unspecified psychosis Code(s): F29 - Unspecified psychosis not due to a substance or known physiological condition Status: Acute - Plan Plan: Patient today appearing a little more alert although continues to be alert and oriented only to person and year not to place or situation. Patient had brief moment of accurate recall regarding the of her father but continues with episodic bouts of confusion, confabulation and tangentiality. We will continue with quetiapine 50 g p.o. twice daily for psychosis. Hospitalist input appreciated. We will request dietitian to consult with the patient as patient has been having poor p.o. intake recently. Continue to monitor mood and behavior. Discharge planning in progress. Justification for Continued Inpatient Stay: At risk of further decompensation at lower level care.
--- NOTE | 2018-09-09 15:15 | P.PNIM ---
Subjective Interval history: Follow-up visit psychosis, tachycardia and HCAP. Patient is resting in bed. She is confused and confabulates. She has her lunch tray in front of her and states she was able to eat a little bit. Denies chest pain, shortness of breath, palpitations, cough, fevers or chills. Physical Exam Vital signs: Vital Signs 09/08/18 15:32 09/08/18 19:58 09/08/18 21:30 Temperature 98.3 F Pulse Rate 70 86 85 Respiratory Rate 18 18 17 Blood Pressure 94/54 L Pulse Oximetry 95 95 09/09/18 02:09 09/09/18 04:18 09/09/18 05:32 Temperature 98.4 F 97.5 F L Pulse Rate 87 75 89 Respiratory Rate 24 18 23 Blood Pressure 103/66 111/69 Pulse Oximetry 97 94 L 09/09/18 07:39 Temperature Pulse Rate 94 H Respiratory Rate 17 Blood Pressure Pulse Oximetry 93 L Intake & Output 09/08/18 09/09/18 09/09/18 18:59 06:59 18:59 Intake Total 110 / 110 940 / 940 940 / 940 Balance 110 / 110 940 / 940 940 / 940 Weight 65.4 kg Intake: IV 100 / 100 700 / 700 100 / 100 Azithromycin Inj 500 MG In NS 250 / 250 Inj 250 ML @ 250 mls/hr IV.SIG Q24H [facility] Rx#:[id number] Zosyn 4.5 GM Premix 4.5 gm In 100 / 100 200 / 200 100 / 100 100 ml @ 200 mls/hr IV.SIG Q6H [facility] Rx#:[id number] Vancomycin Inj 1,000 MG In NS 250 / 250 Inj 250 ML @ 250 mls/hr IV.SIG Q12H [facility] Rx#:[id number] Oral 10 / 10 240 / 240 840 / 840 Other: # Voids 2 1 # Bowel Movements 3 Narrative: GENERAL: Well-nourished, well-developed middle-aged female patient in [facility]. SKIN: Warm and dry. No rash. HEENT: Normocephalic. Atraumatic. Pupils equal and round. Mucous membranes pink and moist. NECK: Supple. Trachea midline. CARDIOVASCULAR: regular rhythm and rate. No murmur appreciated. RESPIRATORY: No accessory muscle use. Clear to auscultation. Breath sounds equal bilaterally. 2L NC. GASTROINTESTINAL: Abdomen soft, non-tender, nondistended. Normoactive bowel sounds x4. MUSCULOSKELETAL: No obvious deformities. No calf tenderness. NEUROLOGICAL: Awake and alert, oriented to self and place. No obvious cranial nerve deficits. Moving all extremities spontaneously with generalized weakness. Normal speech. PSYCHIATRIC: Tangential and disorganized thoughts and conversation. Results Labs CBC & Chem 7: 09/08/18 09:25 09/09/18 08:11 Labs: Microbiology 09/08/18 07:30 Stool Enteric Pathogens (PCR) - Final No enteric pathogens detected by PCR (No Salmonella sp., Shigella sp., Campylobacter sp., Yersinia enterocolitica, Vibrio sp., Norovirus, or EHEC (Shiga Toxin 1 or Shiga Toxin 2) detected. Assessment and Plan (1) Unspecified psychosis: Code(s): F29 - Unspecified psychosis not due to a substance or known physiological condition Status: Acute Plan 38-year-old female with history of hypertension, hypothyroidism, anxiety, depression, alcohol abuse, initially admitted to [facility] on 08/26/18 after being found on the ground with altered mental status, previously last seen normal on 08/22/18. During the course of hospitalization, she was intubated , GCS of 10, admitted to ICU for possible Xanax overdose, alcohol intoxication, and rhabdomyolysis. Patient was extubated and transferred to hospital service on 08/30/18, then discharged to inpatient med psych unit on 09/06/18. Hospitalist consulted for medical management of tachycardia and altered mental status. 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 Benzodiazepine overdose/toxic encephalopathy, s/p ICU admission as above -Continue management per psychiatry -ST consulted; patient has cognitive deficits and requires a mechanical soft diet and nectar thick liquids -S/P lumbar puncture on 09/04; CSF studies unremarkable, HSV PCR was negative -EEG with minimal slowing -MRI brain-negative -Slow improvements Acute Alcohol Withdrawal: per EMR, patient has h/o alcohol abuse -Continue [facility] Protocol -Management per psychiatry -LFT's improving, ammonia remains slightly elevated, hold of on Lactulose given ongoing diarrhea. If needed consider Xifaxin if ammonia continues to trend up. -possible hepatic encephalopathy with hx of alcohol abuse Rhabdomyolysis/BECK/Electrolyte Abnormalities: resolved, likely secondary to alcohol abuse/suspected Xanax overdose/unknown downtime -Creatinine stable -K 3.5 s/p repletion Tachycardia: Sinus tachycardia on previous EKGs, reviewed by me -Likely due to multiple factors as stated above including dehydration, deconditioning, electrolyte abnormalities -Encourage adequate oral hydration -Echocardiogram 09/01 unremarkable with normal ejection fraction 55-60% -Continue on coreg 6.25mg po bid - HR improved, continue to monitor Transaminitis: likely secondary to alcohol abuse -Abdominal U/S 08/27/18 showed hepatic steatosis, small amount of debris within an otherwise normal-appearing gallbladder -Hepatitis panel was negative -Avoid hepatotoxins -Improving, continue to monitor LFTs, mildly elevated T-bili US with no noted stones, asymptomatic. Sacral Decubitus Ulcer: patient has sacral wound, unknown duration -Wound Care consulted; appreciate recommendations -Reposition every 2 hours Generalized weakness: Likely secondary to recent ICU admission -PT consulted; patient is currently moderate to dependent for mobility; recommends rehab and Neurology consult for loss of proprioception right lower extremity with ROM -Consult neurology -OT consulted; patient is currently minimum to maximum depending on ADL task ; recommends rehab Bilateral leg pain/edema: Patient reports BLE pain and trace edema -09/07: BLE Doppler was negative for DVT -09/07: D-Dimer elevated at 1.91 -CTA chest negative for PE DC full strength Lovenox Possible HCAPNA Hx ICU stay on mechanical ventilation - WBC with slight improvement, but increase in neutrophil count, continues to be on NC, T-max 100.3F over past 24 hrs - continue IV Zosyn and Azithromycin - Schedule duonebs and PRN, IS - Encourage OOB and mobility Loose stools: patient reports continued loose stools -C.diff negative on 08/28 and 09/02 -Check stool enteric pathogens -Lactinex bid Hypertension: Improving -Continue Norvasc 5mg qd and Coreg 6.25mg bid -Monitor BP, adjust antihypertensives as needed Hypothyroidism:chronic -Continue patient's Synthroid DVT Prophylaxis: Lovenox sq Discussed Condition With: Patient and nurse, supervising MD Discharge Planning: Patient will most likely need rehab on discharge. Code Status: Full Discharge Planning: per primary team Progress Note: Quality VTE Deep Vein Thrombosis/Pulmonary Embolism Present on Admission: No _ (1) Unspecified psychosis Qualifiers: Psychosis type: Schizoaffective disorder type: Schizophrenia type:
--- NOTE | 2018-09-09 16:25 | P.DIET ---
Nutritional Evaluation Type of nutrition evaluation: initial Nutrition consult regarding: Diet Evaluation Nutrition screening: [facility] (Poor PO intake ) Objective - Diagnosis unspecified psychosis - Objective Body Mass Index: 26 [place] body weight: 50 kg (110lb) % IBW: 130 Body Weight Used for Calculations: Actual (65) Energy Needs - Lower Range (kCal/kg): 25 Energy Needs - Upper Range (kCal/kg): 30 Lower Limit kCal/kg (kCals): 1,625 Upper Limit kCal/kg (kCals): 1,950 Lower Limit Protein Factor (Grams per Kg): 0.8 Upper Limit Protein Factor (Grams per Kg): 1.0 Lower Protein Needs (Protein): 52 Upper Protein Needs (Protein): 65 Dietitian Reviewed in Medical Record: Current diet, Curent medications, Intake & Output, Labs, Medical history Objective Comments: PMH; alcohol abuse, anxiety, depression Labs; K 2.2, BUN 5 Medications; synthroid, lactulose, B1 Assessment Assessment: [facility] Poor PO intake; Pt presents to ED with altered mental status with h/o of depression since the passing of her father, likely misusing xanax and alcohol and is currently at nutritional risk r/t poor PO intake. Was difficult to obtain any accurate history from pt however per RN she only does well with meals if she has assistance. Pt explained to me that her hands are weak and she is unable to ambulate food into her mouth, will recommend to provide assistance with all meals. Discussed different snack option with pt so she can snack throughout the day to possibly eliminate feeling overwhelmed with a full meal. Pt explained that she would like dariana crackers and a strawberry ensure. Will adhere to pt preference. Each can of ensure will provide 250kcal and 9g protein. Labs and medications reviewed. Will continue to monitor PO intake and supplement acceptance. Recommendations: 1. Please provide assistance with all meals 2. Ensure nutritional supplement BID 3. Snacks per pt preference 4. Continue to monitor PO intake Dietitian to Monitor: Lab values, Supplement acceptance, PO Intake, Medical course
--- NOTE | 2018-09-09 16:57 | P.PNNEU ---
Subjective Subjective Comments: No cp, no dyspnea, no mann, no focal weakness, no vision loss Active Medications: Active Medications Al Hydrox/Mg Hydrox/Simethicone (Mag-Al Plus Susp Liq) 30 ml PO Q6H PRN PRN Reason: DYSPEPSIA Al Hydroxide/Mg Hydroxide (Milk Of Magnesia Liq) 30 ml PO Q12H PRN PRN Reason: Mild Constipation Albuterol (Duoneb Neb (Prn)) 1 ampul NEB Q2HR NEB PRN PRN Reason: SHORTNESS OF BREATH/WHEEZING Last Admin: 09/09/18 04:22 Dose: 1 ampul Albuterol (Duoneb Neb (Elisa)) 1 ampul NEB Q6HR WHILE AWAKE NEB [facility] Last Admin: 09/09/18 13:44 Dose: Not Given Amlodipine Besylate (Norvasc) 5 mg PO DAILY [facility] Last Admin: 09/09/18 08:58 Dose: 5 mg Bisacodyl (Dulcolax Supp) 10 mg RECTAL DAILY PRN PRN Reason: SEVERE CONSITIPATION Carvedilol (Coreg) 6.25 mg PO BID [facility] Last Admin: 09/09/18 08:58 Dose: 6.25 mg Clonidine HCl (Catapres) 0.2 mg PO TID [facility] Last Admin: 09/09/18 12:57 Dose: 0.2 mg Enoxaparin Sodium (Lovenox Inj) 30 mg SQ DAILY [facility] Last Admin: 09/09/18 08:58 Dose: 30 mg Guaifenesin/Dextromethorphan (Robitussin Dm Liq) 10 ml PO Q4H PRN PRN Reason: cough interfering with rest Piperacillin/Tazobactam/Dextrose (Zosyn 4.5 Gm Premix) 4.5 gm in 100 mls @ 200 mls/hr IV.SIG Q6H [facility] Last Infusion: 09/09/18 16:42 Dose: 200 mls/hr Azithromycin 500 mg/ Sodium (Chloride) 250 mls @ 250 mls/hr IV.SIG Q24H ELISA Last Infusion: 09/09/18 01:57 Dose: Infused Vancomycin HCl 1,000 mg/ (Sodium Chloride) 250 mls @ 250 mls/hr IV.SIG Q12H ELISA Last Infusion: 09/09/18 10:55 Dose: 250 mls/hr Lactobacillus Acidophilus (Lactinex) 1 tab PO BID ELISA Last Admin: 09/09/18 08:58 Dose: 1 tab Lactulose (Lactulose Liq) 30 ml PO DAILY PRN PRN Reason: SEVERE CONSITIPATION Levothyroxine Sodium (Synthroid) 75 mcg PO DAILY@0600 [facility] Last Admin: 09/09/18 05:41 Dose: 75 mcg Miscellaneous Information ([facility] Ordered Lab Info) 0 each OTHER ONCE ONE Stop: 09/10/18 07:46 Pharmacy Profile Note (Vancomycin Consult Pharmacy) 1 each OTHER UNSCH PRN PRN Reason: Pharmacy to dose Quetiapine Fumarate (Seroquel) 50 mg PO BID [facility] Last Admin: 09/09/18 08:58 Dose: 50 mg Senna/Docusate Sodium (Pamela-Colace) 1 tab PO BID [facility] Last Admin: 09/09/18 08:58 Dose: Not Given Sennosides (Senokot) 17.2 mg PO Q12H PRN PRN Reason: Moderate Constipation Thiamine HCl (Vitamin B1) 100 mg PO DAILY [facility] Last Admin: 09/09/18 08:58 Dose: 100 mg Allergies/Adverse Reactions: Allergies Allergy/AdvReac Type Severity Reaction Status Date / Time No Known Allergies Allergy Uncoded 04/18/15 15:02 Review of Systems All other systems reviewed negative except as stated in HPI Physical Exam Vital signs: Vital Signs 09/08/18 19:58 09/08/18 21:30 09/09/18 02:09 Temperature 98.3 F 98.4 F Pulse Rate 86 85 87 Respiratory Rate 18 17 24 Blood Pressure 94/54 L 103/66 Pulse Oximetry 95 95 97 09/09/18 04:18 09/09/18 05:32 09/09/18 07:39 Temperature 97.5 F L Pulse Rate 75 89 94 H Respiratory Rate 18 23 17 Blood Pressure 111/69 Pulse Oximetry 94 L 93 L Intake & Output 09/08/18 09/09/18 09/09/18 18:59 06:59 18:59 Intake Total 110 / 110 940 / 940 940 / 940 Balance 110 / 110 940 / 940 940 / 940 Weight 65.4 kg Intake: IV 100 / 100 700 / 700 100 / 100 Azithromycin Inj 500 MG In NS 250 / 250 Inj 250 ML @ 250 mls/hr IV.SIG Q24H [facility] Rx#:[id number] Zosyn 4.5 GM Premix 4.5 gm In 100 / 100 200 / 200 100 / 100 100 ml @ 200 mls/hr IV.SIG Q6H ELISA Rx#:[id number] Vancomycin Inj 1,000 MG In NS 250 / 250 0 / 0 Inj 250 ML @ 250 mls/hr IV.SIG Q12H ELISA Rx#:[id number] Oral 240 / 240 840 / 840 Other: # Voids 2 1 # Bowel Movements 3 Narrative: GENERAL: NAD SKIN: Warm and dry. HEAD: Atraumatic. Normocephalic. EYES: Pupils equal and round. ENT: No nasal bleeding or discharge. NECK: Trachea midline. No JVD. CARDIOVASCULAR: Regular rate and rhythm. RESPIRATORY: No accessory muscle use. GASTROINTESTINAL: Abdomen soft, non-tender, nondistended. MUSCULOSKELETAL: Extremities without clubbing, cyanosis, or edema. No obvious deformities. NEUROLOGICAL: Awake and alert. Pleasant, calm ox 2. pres -correct, follows, articulate, not sure which floor she is on, mild thought disorder at times, eomi , face sym, no drift, reduce pinprick up to the mid thighs reflexes 1-2+ plantarflex her no clonus Objective Laboratory Results - last 24 hr 09/08/18 09/09/18 21:08 08:11 Potassium 3.5 Total Protein (PEP) 5.3 L Microbiology 09/08/18 07:30 Enteric Pathogens (PCR) - Final Stool No enteric pathogens detected by PCR (No Salmonella sp., Shigella sp., Campylobacter sp., Yersinia enterocolitica, Vibrio sp., Norovirus, or EHEC (Shiga Toxin 1 or Shiga Toxin 2) detected. Review/Management - Diagnosis (1) BECK (acute kidney injury) Code(s): N17.9 - Acute kidney failure, unspecified Status: Acute Current Visit: No (2) Unspecified psychosis Code(s): F29 - Unspecified psychosis not due to a substance or known physiological condition Status: Acute Current Visit: No (3) Depression Code(s): F32.9 - Major depressive disorder, single episode, unspecified Status : Acute Current Visit: No (4) Encephalopathy acute Code(s): G93.40 - Encephalopathy, unspecified Status: Acute Current Visit: No - Review/Management Plan: Suspected benzo overdose, question hypoxia CSF negative, EEG showing minimal encephalopathy, previous MRI brain scan negative We will repeat MRI brain, CT L-spine Follow-up HIV, RPR, CHET Paraneoplastic panel (3) Depression Qualifiers: Depression Type: unspecified Qualified Code(s): F32.9 - Major depressive disorder, single episode, unspecified
[2018-09-10] MEDS: Azithromycin Inj 500 MG in Sodium Chlor 0.9% Inj 250 ML IV.SIG SCH (00:25)
[2018-09-10] MEDS: Piperacil/Tazo 4.5 GM Premix 4.5 GM/100 ML BAG IV.SIG SCH ×4 (01:22→21:10)
[2018-09-10] MEDS: Levothyroxine 75 MCG Tablet PO SCH (05:37)
[2018-09-10] MEDS ORDERED: Pharmacy Ordered Lab Info OTHER ONE (07:45)
[2018-09-10] MEDS: amLODIPine 5 MG Tablet PO SCH (08:15)
[2018-09-10] MEDS: QUEtiapine 25 MG Tablet PO SCH ×2 (08:15→21:09)
[2018-09-10] MEDS: Carvedilol 6.25 MG Tablet PO SCH ×2 (08:15→21:09)
[2018-09-10] MEDS: Enoxaparin Inj 30 MG/0.3 ML Syringe SQ SCH (08:16)
[2018-09-10] MEDS: Lactobacillus Acidophilus/L. Spores Tablet PO SCH ×2 (08:20→21:09)
[2018-09-10] MEDS: Senna/Docusate Sodium 8.6/50 MG Tablet PO SCH ×2 (08:20→21:10)
[2018-09-10] MEDS: Vancomycin Inj 1,000 MG in Sodium Chlor 0.9% Inj 250 ML IV.SIG SCH ×2 (09:15→21:10)
[2018-09-10 10:15] LABS: RPR Screen For Reflex FTA Nonreactive (Nonreactive)
[2018-09-10] MEDS ORDERED: Gadobutrol PF 7.5 MMOL/7.5 ML Vial (for RAD) IV.SIG ONE (11:37)
--- NOTE | 2018-09-10 11:47 | MR ---
EXAM DATE: 09/10/2018 11:41 AM EST AGE/SEX: 38 years / Female INDICATIONS: . Generalized weakness. CLINICAL DATA: This is the patient's subsequent encounter. Patient reports that signs and symptoms h ave been present for 1 month and indicates a pain score of 0/10. MEDICAL/SURGICAL HISTORY: Hypertension. . breast reduction COMPARISON: No prior exams available for comparison. TECHNIQUE: Multiplanar, multisequence MRI of the lumbar spine was performed without contrast. Patie nt was scanned in a sitting position; neutral, flexion, and extension scans were performed in the sa gittal plane. FINDINGS: Vertebra: Homogeneous signal. Normal alignment. Conus: Normal level and configuration. T12-L1: The thecal sac has a normal diameter. No evidence of disc bulge or protrusion. The neural foramina are patent bilaterally. L1-L2: The thecal sac has a normal diameter. No evidence of disc bulge or protrusion. The neural foramina are patent bilaterally. L2-L3: The thecal sac has a normal diameter. No evidence of disc bulge or protrusion. The neural foramina are patent bilaterally. L3-L4: The thecal sac has a normal diameter. No evidence of disc bulge or protrusion. The neural foramina are patent bilaterally. L4-L5: The thecal sac has a normal diameter. No evidence of disc bulge or protrusion. The neural foramina are patent bilaterally. L5-S1: The thecal sac has a normal diameter. No evidence of disc bulge or protrusion. The neural foramina are patent bilaterally. CONCLUSION: 1. Negative MRI of the lumbar spine Electronically signed by: Riley Ngo MD Board Certified Radiologist 09/10/2018 11:46 AM EST
--- NOTE | 2018-09-10 11:49 | MR ---
EXAM DATE: 09/10/2018 11:42 AM EST AGE/SEX: 38 years / Female INDICATIONS: . Generalized weakness. CLINICAL DATA: This is the patient's subsequent encounter. Patient reports that signs and symptoms h ave been present for 1 month and indicates a pain score of 0/10. MEDICAL/SURGICAL HISTORY: Hypertension. . breast reduction COMPARISON: No prior exams available for comparison. TECHNIQUE: Multiplanar, multisequence MRI of the thoracic spine was performed without and with 6.5 m l Gadavist (gadobutrol) contrast as a single exam dose. FINDINGS: Vertebrae: Normal vertebral body height. Homogeneous marrow signal. Alignment: Normal. Cord: Normal position and configuration. Post Contrast: No abnormal areas of enhancement are seen in the cord, dural or paraspinal regions. Small bilateral pleural effusions. T1-T2: The thecal sac has a normal diameter. No evidence of disc bulge or protrusion. T2-T3: The thecal sac has a normal diameter. No evidence of disc bulge or protrusion. T3-T4: The thecal sac has a normal diameter. No evidence of disc bulge or protrusion. T4-T5: The thecal sac has a normal diameter. No evidence of disc bulge or protrusion. T5-T6: The thecal sac has a normal diameter. No evidence of disc bulge or protrusion. T6-T7: The thecal sac has a normal diameter. No evidence of disc bulge or protrusion. T7-T8: The thecal sac has a normal diameter. No evidence of disc bulge or protrusion. T8-T9: The thecal sac has a normal diameter. No evidence of disc bulge or protrusion. T9-T10: The thecal sac has a normal diameter. No evidence of disc bulge or protrusion. T10-T11: The thecal sac has a normal diameter. No evidence of disc bulge or protrusion. T11-T12: The thecal sac has a normal diameter. No evidence of disc bulge or protrusion. T12-L1: The thecal sac has a normal diameter. No evidence of disc bulge or protrusion. CONCLUSION: 1. Small bilateral pleural effusions, otherwise negative. Signal intensity cord is normal. I do not see an etiology of patient's generalized weakness. Electronically signed by: Riley Ngo MD Board Certified Radiologist 09/10/2018 11:48 AM EST
--- NOTE | 2018-09-10 11:50 | MR ---
EXAM DATE: 09/10/2018 11:46 AM EST AGE/SEX: 38 years / Female INDICATIONS: . Generalized weakness. CLINICAL DATA: This is the patient's subsequent encounter. Patient reports that signs and symptoms h ave been present for 1 month and indicates a pain score of 0/10. MEDICAL/SURGICAL HISTORY: Hypertension. . breast reduction COMPARISON: [facility] [place] THORACIC SPINE W & W/O CON, 09/10/2018. . TECHNIQUE: Multiplanar, multisequence MRI examination of the cervical spine was performed without an d with 6.5 ml Gadavist (gadobutrol) contrast as a single exam dose. FINDINGS: Vertebrae: Normal vertebral body height. Homogeneous marrow signal. Alignment: Normal. Cord: Normal configuration and signal. Post Fossa: The cerebellar tonsils are normal in position. Post Contrast: No abnormal areas of enhancement are seen. C2-C3: The thecal sac has a normal configuration. There is no evidence of disc herniation or spinal canal stenosis. The neural foramina are patent bilaterally. C3-C4: The thecal sac has a normal configuration. There is no evidence of disc herniation or spinal canal stenosis. The neural foramina are patent bilaterally. C4-C5: The thecal sac has a normal configuration. There is no evidence of disc herniation or spinal canal stenosis. The neural foramina are patent bilaterally. C5-C6: The thecal sac has a normal configuration. There is no evidence of disc herniation or spinal canal stenosis. The neural foramina are patent bilaterally. C6-C7: The thecal sac has a normal configuration. There is no evidence of disc herniation or spinal canal stenosis. The neural foramina are patent bilaterally. C7-T1: No epidural impressions seen. CONCLUSION: 1. Negative MRI of the cervical spine Electronically signed by: Riley Ngo MD Board Certified Radiologist 09/10/2018 11:49 AM EST
--- NOTE | 2018-09-10 11:56 | MR ---
EXAM DATE: 09/10/2018 11:49 AM EST AGE/SEX: 38 years / Female INDICATIONS: . Generalized weakness. Altered mental status. CLINICAL DATA: This is the patient's subsequent encounter. Patient reports that signs and symptoms h ave been present for 1 month and indicates a pain score of 0/10. MEDICAL/SURGICAL HISTORY: Hypertension. . breast reduction COMPARISON: [facility], MR BRAIN W AND W/O CONTRAST, 12/14/2016. . TECHNIQUE: Multiplanar, multisequence examination of the brain was performed without and with 6.5 ml Gadavist (gadobutrol) contrast as a single exam dose. FINDINGS: Cerebrum: The ventricles are normal for age. No evidence of midline shift, mass lesion, hemorrhage or acute infarction. No extraaxial fluid collections are seen. The pituitary gland and suprasellar cistern are normal in configuration. White Matter: No significant signal abnormalities are seen in the white matter. Posterior Fossa: The cerebellum and brainstem are intact. The 4th ventricle is midline. The cerebel lopontine angle is unremarkable. The cerebellar tonsils are normal in position. Diffusion Imaging: No focal areas of restricted diffusion are seen. No evidence of acute infarction . Extracranial: The visualized portions of the orbits and paranasal sinuses are unremarkable. Post Contrast: No abnormal areas of parenchymal or dural enhancement. No evidence of blood-brain ba rrier breakdown. CONCLUSION: 1. Negative exam with no evidence of hemorrhage, mass or stroke. Electronically signed by: Jay Sanches MD Board Certified Radiologist 09/10/2018 11:55 AM EST
--- NOTE | 2018-09-10 13:29 | P.PNPSY ---
Subjective Remarks: Patient seen for follow-up, chart reviewed. Discussion with nursing staff reported that patient continues with confusion, no behavioral disturbances, was taken for imaging this morning. Patient was later seen, found lying on hospital bed, calm and cooperative. She is noted to continue with confabulation , alert and oriented only to person but able to have some accurate recall of recent events such as the of her father. Patient's recent memory and immediate recall are poor, stating that she was just on a plane or having recenlty spoke to her uncle and aunt. When asked how she was coping with the of her father she was tearful at times but stated not having felt sad that she considered being depressed and denied ever having any suicidal ideation. She states that her mood is "ambivalent", reports having disturbed sleep last night. Patient does not appear to be acutely psychotic nor manic at this time but noted with cognitive impairment. Review of Systems All other systems reviewed negative except as stated in HPI Mental Status Examination Appearance: Appropriate Consciousness: Alert Orientation: Person Motor Activity: Normal gait Speech: Unremarkable Language: Adequate Fund of Knowledge: Adequate Attention and Concentration: Adequate Memory: Impaired Mood: Appropriate Affect: Appropriate Thought Process & Associations: Loose associations, Disorganized (At times), Tangential Thought Content: Bizarre thinking Hallucination Type: None Delusion Type: Bizarre Suicidal Ideation: No Suicidal Plan: No Suicidal Intention: No Homicidal Ideation: No Homicidal Plan: No Homicidal Intention: No Insight: Poor Judgment: Poor Assessment and Plan - Assessment (1) Unspecified psychosis Code(s): F29 - Unspecified psychosis not due to a substance or known physiological condition Status: Acute - Plan Plan: Patient continues with noted cognitive impairment, poor memory, noted confabulation. Patient denying any mood manic or psychotic symptoms at this time, denying suicidal ideation. Patient continues to be alert and only to person at this time. We will continue current treatment. We will continue recommendations as per past medical team and neurology workup recommendations. Patient will require rehabilitation program post discharge from [facility] and may require further social psychologist thereafter due to noted cognitive impairment. We will request neuropsychological testing. Justification for Continued Inpatient Stay: At risk of further decompensation at lower level care.
--- NOTE | 2018-09-10 14:03 | P.PNWCN ---
Wound Care Nurse Consult Description: Received pressure ulcer consult from Doctor Ortega for sacral area. Patient was seen previously by wound care on 08/29/2018, when patient was in [facility]. Communicated with: ALE Perez [facility] and Doctor Clinton Recommendation: Please consult plastics for debridement of thick yellow slough 1. Please cleanse wound to sacral area with normal saline only, do not use wound cleanser with santyl and pat dry 2. Apply Santyl ointment to wound bed. 3.Apply Calazime skin protectant paste in a thin layer to wound edges 4. Apply Dakins 0.125% moistened fluffed 2x2 gauze pad to wound bed 5. Cover with Optifoam gentle border dressing 6x6 and change daily until seen by plastics. 6. Apply fecal management system in place for liquid stools 7. Use purwick for urinary incontinence management. 8. Do not apply briefs to patient, unless getting up with P.T. 9. Use extrasorb pad only for the management of incontinence while patient is in bed. 10. Turn patient every 2 hours from L side to R side, limiting time spent on back to P.T., and meals. Wound/Pressure Injury - Wound Sacrum Wound Staging: Unstageable Wound Assessment: Ongoing Wound Type: Pressure Injury Requested from Provider a Wound Care Consult: Yes Length (cm): 3 Width (cm): 7 Depth (cm): 0.3 (~0.3cm with slough) Wound Bed Appearance: Di Giorgio, Yellow Wound Bed Appearance: Wound bed presents with ~90% yellow adherent thick slough and ~10% pink tissue Surrounding Tissue Appearance: Edematous, Erythema, Indurated Surrounding Tissue Temperature: Warm Drainage Amount: None Drainage Odor: No Odor Dressing Status: Changed Cleansing Solution: Saline Topical: Calazime skin protectant paste to periwound Cover Dressing: optifoam gentle 6x6 dressing Wound Dressing Change Date: 09/10/18 Wound Margin Description: irregular well defined wound margins - Additional Information Patient seen on 4th floor medical [facility] unit for follow up of pressure injury to sacral area. Patient was previously seen by wound care on 2018.Patient had a sacrococcygeal deep tissue injury that had scattered small openings to full thickness skin loss. Patient was seen today with account underwriter and ALE Panda. Patient was turned toward the L side to reveal saturated bordered gauze dressing in place. Removed dressing and oil emulsion gauze to reveal open wound to sacral area.Wound bed presents with ~90% yellow adherent thick slough and ~10 % pink tissue. Periwound presents edema, erythema that is blanchable and induration between 11 and 12 o'clock. Wound is dry without drainage or odor. Wound was cleansed with wound cleanser and patted dry. Applied Calazime skin protectant paste to periwound lining wound edges and then covered wound with Optifoam gentle 6x6. Patient is having loose watery, yellow/brown stool and cotton pad underneath patient is saturated with urine. Buttocks is noted with moisture associated skin damage. Patient was cleansed with Remedy barrier wipes and patted dry. Applied Calazime skin protectant paste covering moisture associated skin damage on buttock area. Replaced soiled cotton underpad with two extrasorb pads placed in staggered fashion under patient. Patient tolerated wound assessment, and dressing change well.Full wound description, measurements and wound care recommendations are noted above.
--- NOTE | 2018-09-10 15:32 | P.TTN ---
- Patient Problems Problems: 1. Discharge planning 2. Medication compliance 3. Knowledge deficit 4. Lack of coping skills - Progress Toward Goals Provider Present: Dr. Sri Cadet Provider Input: 09/10/2018; patient's meds are being titrated, and will need to be dc to Rehab Nurse(s) Present: RN Nurse Input: 09/10/2018; Patient is taking her med's require coaching and redirection at times. Psychiatric Counselors Present: Shauna Irizarry [facility] Psychiatric Therapist Input: 09/10/2018; counselor will work with [facility] with transitioning patient to there facility when ready. Family notified about [facility] Group Spec/RT/OT/B[place]LEY Present: ANA CRISTINA Bell Group Spec/RT/OT/B[place]LEY Input: 09/10/2018; patient has been unable to attend groups - Documentation Teaching Recipient: Patient
--- NOTE | 2018-09-10 17:12 | P.PNIM ---
Subjective Interval history: Follow-up visit psychosis, sacral wound, tachycardia. Patient is resting in bed. Her thoughts are slightly more organized during today's encounter. Patient denies shortness of breath, chest pain, palpitations, cough, fevers or chills. Discussed wound care recommendations with patient including need for plastic surgery consultation. Patient states she is in agreement with plan of care. No needs or complaints voiced. Physical Exam Vital signs: Vital Signs 09/09/18 18:11 09/09/18 19:57 09/10/18 06:19 Temperature 97.7 F 98.8 F Pulse Rate 97 H 91 H 94 H Respiratory Rate 18 16 Blood Pressure 135/88 Pulse Oximetry 92 L 96 93 L 09/10/18 07:29 09/10/18 14:58 09/10/18 14:59 Temperature Pulse Rate 100 H 96 H Respiratory Rate 16 18 Blood Pressure Pulse Oximetry 98 92 L 09/10/18 16:57 Temperature 98.8 F Pulse Rate 95 H Respiratory Rate 18 Blood Pressure 130/81 Pulse Oximetry 91 L Intake & Output 09/09/18 09/10/18 09/10/18 18:59 06:59 18:59 Intake Total 1770 / 1770 1540 / 1540 930 / 930 Balance 1770 / 1770 1540 / 1540 930 / 930 Intake: IV 450 / 450 700 / 700 450 / 450 Azithromycin Inj 500 MG In NS 250 / 250 Inj 250 ML @ 250 mls/hr IV.SIG Q24H TIFFANIE Rx#:[id number] Zosyn 4.5 GM Premix 4.5 gm In 200 / 200 200 / 200 200 / 200 100 ml @ 200 mls/hr IV.SIG Q6H TIFFANIE Rx#:[id number] Vancomycin Inj 1,000 MG In NS 250 / 250 250 / 250 250 / 250 Inj 250 ML @ 250 mls/hr IV.SIG Q12H TIFFANIE Rx#:[id number] Oral 1320 / 1320 840 / 840 480 / 480 Other: # Voids 1 Date of Last Bowel Movement 09/09/18 Narrative: GENERAL: Well-nourished, well-developed middle-aged female patient in [facility]. SKIN: Warm and dry. No rash. Sacral deep tissue injury. HEENT: Normocephalic. Atraumatic. Pupils equal and round. Mucous membranes pink and moist. NECK: Supple. Trachea midline. CARDIOVASCULAR: regular rhythm and rate. No murmur appreciated. RESPIRATORY: No accessory muscle use. Clear to auscultation. Breath sounds equal bilaterally. 2L NC. GASTROINTESTINAL: Abdomen soft, non-tender, nondistended. Normoactive bowel sounds x4. MUSCULOSKELETAL: No obvious deformities. No calf tenderness. NEUROLOGICAL: Awake and alert, oriented to self and place. No obvious cranial nerve deficits. Moving all extremities spontaneously with generalized weakness. Normal speech. PSYCHIATRIC: Tangential and disorganized thoughts and conversation. Results Labs CBC & Chem 7: 09/08/18 09:25 09/09/18 08:11 Imaging Imaging: Impressions Cervical Spine MRI 09/10/18 18:03 CONCLUSION: 1. Negative MRI of the cervical spine Head MRI 09/10/18 18:03 CONCLUSION: 1. Negative exam with no evidence of hemorrhage, mass or stroke. Lumbar Spine MRI 09/10/18 18:03 CONCLUSION: 1. Negative MRI of the lumbar spine Thoracic Spine MRI 09/10/18 18:09 CONCLUSION: 1. Small bilateral pleural effusions, otherwise negative. Signal intensity cord is normal. I do not see an etiology of patient's generalized weakness. Assessment and Plan (1) Unspecified psychosis: Code(s): F29 - Unspecified psychosis not due to a substance or known physiological condition Status: Acute Plan 38-year-old female with history of hypertension, hypothyroidism, anxiety, depression, alcohol abuse, initially admitted to [facility] on 08/26/18 after being found on the ground with altered mental status, previously last seen normal on 08/22/18. During the course of hospitalization, she was intubated , GCS of 10, admitted to ICU for possible Xanax overdose, alcohol intoxication, and rhabdomyolysis. Patient was extubated and transferred to hospital service on 08/30/18, then discharged to inpatient med psych unit on 09/06/18. Hospitalist consulted for medical management of tachycardia and altered mental status. 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 Benzodiazepine overdose/toxic encephalopathy, s/p ICU admission as above -Continue management per psychiatry -ST consulted; patient has cognitive deficits and requires a mechanical soft diet and nectar thick liquids -S/P lumbar puncture on 09/04; CSF studies unremarkable, HSV PCR was negative -EEG with minimal slowing -MRI brain-negative -Slow improvements Acute Alcohol Withdrawal: per EMR, patient has h/o alcohol abuse -Continue [facility] Protocol -Management per psychiatry -LFT's improving, ammonia remains slightly elevated, hold off on Lactulose given ongoing diarrhea. If needed consider Xifaxin if ammonia continues to trend up. -possible hepatic encephalopathy with hx of alcohol abuse Rhabdomyolysis/BECK/Electrolyte Abnormalities: resolved, likely secondary to alcohol abuse/suspected Xanax overdose/unknown downtime -Creatinine stable -K 3.5 s/p repletion Tachycardia: Sinus tachycardia on previous EKGs, reviewed by me -Likely due to multiple factors as stated above including dehydration, deconditioning, electrolyte abnormalities -Encourage adequate oral hydration -Echocardiogram 09/01 unremarkable with normal ejection fraction 55-60% -Continue on coreg 6.25mg po bid - HR improved, continue to monitor Transaminitis: likely secondary to alcohol abuse -Abdominal U/S 08/27/18 showed hepatic steatosis, small amount of debris within an otherwise normal-appearing gallbladder -Hepatitis panel was negative -Avoid hepatotoxins -Improving, continue to monitor LFTs, mildly elevated T-bili US with no noted stones, asymptomatic. Sacral Decubitus Ulcer: patient has sacral wound, unknown duration -Wound Care consulted; appreciate recommendations -Reposition every 2 hours -consult plastic surgery to evaluate for debridement of thick yellow slough Generalized weakness: Likely secondary to recent ICU admission -PT consulted; patient is currently moderate to dependent for mobility; recommends rehab and Neurology consult for loss of proprioception right lower extremity with ROM -Consult neurology -OT consulted; patient is currently minimum to maximum depending on ADL task ; recommends rehab Bilateral leg pain/edema: Patient reports BLE pain and trace edema -09/07: BLE Doppler was negative for DVT -09/07: D-Dimer elevated at 1.91 -CTA chest negative for PE DC full strength Lovenox Possible HCAPNA Hx ICU stay on mechanical ventilation - WBC with slight improvement, but increase in neutrophil count, continues to be on NC, T-max 98.8F over past 24 hrs - continue IV Zosyn and Azithromycin (start 09/08/18) - Schedule duonebs and PRN, IS - Encourage OOB and mobility Loose stools: patient reports continued loose stools -C.diff negative on 08/28 and 09/02 -Check stool enteric pathogens -Lactinex bid Hypertension: Improving -Continue Norvasc 5mg qd and Coreg 6.25mg bid -Monitor BP, adjust antihypertensives as needed Hypothyroidism:chronic -Continue patient's Synthroid DVT Prophylaxis: Lovenox sq Discussed Condition With: Patient and nurse, supervising MD Discharge Planning: Patient will most likely need rehab on discharge. Code Status: Full Discharge Planning: per primary team Progress Note: Quality VTE Deep Vein Thrombosis/Pulmonary Embolism Present on Admission: No _ (1) Unspecified psychosis Qualifiers: Psychosis type: Schizoaffective disorder type: Schizophrenia type:
[2018-09-10 23:52] LABS: Neuronal Nuclear Ab (HU) Titer ND titer (<1:40); Neuronal Nuclear Ab (RI) Titer ND titer (<1:40); Neuronal Nuclear(HU)Ab Screen NEGATIVE (NEGATIVE); Neuronal Nuclear(RI)Ab Screen NEGATIVE (NEGATIVE); Purkinje Ab Titer ND titer (<1:40); RI Ab Western Blot ND (NEGATIVE); Yo Ab Western Blot Confimation ND (NEGATIVE)
[2018-09-11] MEDS: Azithromycin Inj 500 MG in Sodium Chlor 0.9% Inj 250 ML IV.SIG SCH (00:24)
[2018-09-11] MEDS: Piperacil/Tazo 4.5 GM Premix 4.5 GM/100 ML BAG IV.SIG SCH ×4 (02:43→20:24)
[2018-09-11] MEDS: Levothyroxine 75 MCG Tablet PO SCH (05:54)
[2018-09-11 07:15] LABS: Baso % (Auto) 0.6 % (0.0-2.0); Eos # (Auto) 0.4 th/mm3 (0.0-0.4); Eos % (Auto) 6.9 % (0.0-4.0); Hematocrit 31.1 % (35.0-46.0); Hemoglobin 10.6 gm/dL (11.6-15.3); Lymph # (Auto) 1.3 th/mm3 (1.0-4.8); Lymph % (Auto) 22.7 % (9.0-44.0); Mean Corpuscular HGB Conc 34.1 % (32.0-36.0); Mean Corpuscular Hemoglobin 36.7 pg (27.0-34.0); Mean Corpuscular Volume 107.7 fL (80.0-100.0); Mean Platelet Volume 8.4 fL (7.0-11.0); Mono # (Auto) 0.6 th/mm3 (0.0-0.9); Mono % (Auto) 11.1 % (0.0-8.0); Neut # (Auto) 3.3 th/mm3 (1.8-7.7); Neut % (Auto) 58.7 % (16.0-70.0); Platelet Count 375 th/mm3 (150-450); Red Blood Count 2.89 mil/mm3 (4.00-5.30); Red Cell Distribution Width 13.8 % (11.6-17.2); White Blood Count 5.6 th/mm3 (4.0-11.0)
[2018-09-11 07:48] LABS: Calcium 8.2 mg/dL (8.5-10.1); Carbon Dioxide 25.8 meq/L (21.0-32.0)
[2018-09-11 08:03] LABS: Potassium 2.7 meq/L (3.5-5.1)
[2018-09-11] MEDS: Senna/Docusate Sodium 8.6/50 MG Tablet PO SCH ×2 (08:13→20:25)
[2018-09-11] MEDS: Lactobacillus Acidophilus/L. Spores Tablet PO SCH ×2 (08:13→20:25)
[2018-09-11] MEDS: Enoxaparin Inj 30 MG/0.3 ML Syringe SQ SCH (08:13)
[2018-09-11] MEDS: Collagenase Oint 30 GM Tube TOPICAL SCH (08:13)
[2018-09-11] MEDS: Carvedilol 6.25 MG Tablet PO SCH ×2 (08:13→20:25)
[2018-09-11] MEDS: QUEtiapine 25 MG Tablet PO SCH ×2 (08:13→20:25)
[2018-09-11] MEDS: Sodium Hypochlorite 0.125% Top Soln 500 ML Bottle IRRIGATION SCH (08:13)
[2018-09-11] MEDS: amLODIPine 5 MG Tablet PO SCH (08:13)
[2018-09-11] MEDS: Vancomycin Inj 1,000 MG in Sodium Chlor 0.9% Inj 250 ML IV.SIG SCH ×2 (08:34→20:24)
[2018-09-11 09:08] LABS: Methylmalonic Acid 0.08 nmol/mL (<=0.40)
[2018-09-11 11:54] LABS: Magnesium 1.7 mg/dL (1.5-2.5)
[2018-09-11 11:59] LABS: Potassium 2.7 meq/L (3.5-5.1)
--- NOTE | 2018-09-11 12:18 | P.PNPSY ---
Subjective Remarks: Patient seen for follow-up, chart reviewed. Discussion with nursing staff reported that patient no behavioral changes, mother had visited yesterday, continues with confabulation, denying any suicide ideations. Patient was found sitting in hospital bed noted to be alert,, cooperative. Patient states he slept well last night, stating that she was having a good day today but noted to have decreased energy today. Patient is alert and oriented only to person and place (hospital), and month only. Patient continues to have difficulty recalling events prior to her admission continues to have confabulation at times stating that earlier today she went shopping. Patient stated feeling sad recently due to the passing of her father but denying feeling depressed or having ever contemplated suicide nor having any suicidal ideations. Patient continues with confusion and unclear whether this will be patient's baseline but at this time requires further medical care and services. Treatment team actively arranging for patient to be discharged to a rehab facility to continue recovery. Patient presented to mental health court today which patient's close friend was also present testify and expressed believing that patient did not attempt to end her life suspicion of benzodiazepine overdose also was looked into initially by her her and the ED physician which benzodiazepine bottle was found and was accounted for. Patient was maintained on a continuance through mental health court until placement to rehab is found. Review of Systems All other systems reviewed negative except as stated in HPI Mental Status Examination Appearance: Appropriate Consciousness: Alert Orientation: Person Motor Activity: Normal gait Speech: Unremarkable Language: Adequate Fund of Knowledge: Adequate Attention and Concentration: Adequate Memory: Impaired Mood: Appropriate Affect: Appropriate Thought Process & Associations: Loose associations, Disorganized (At times), Tangential Thought Content: Bizarre thinking, Other (Confabulation) Hallucination Type: None Delusion Type: None Suicidal Ideation: No Suicidal Plan: No Suicidal Intention: No Homicidal Ideation: No Homicidal Plan: No Homicidal Intention: No Insight: Poor Judgment: Poor Assessment and Plan - Assessment (1) Unspecified psychosis Code(s): F29 - Unspecified psychosis not due to a substance or known physiological condition Status: Acute - Plan Plan: Patient this time continues with some disorientation, confabulation but denying any mood or psychotic symptoms at this time. Patient tolerating medication regimen well, continues to require primary medical team follow-up and will require rehabilitation program after discharge. We will continue to monitor mood and behavior. Discharge planning in progress. Justification for Continued Inpatient Stay: At risk of further decompensation at lower level care.
[2018-09-11] MEDS ORDERED: Potassium Chloride 10 MEQ ER Capsule PO ONE (14:00)
--- NOTE | 2018-09-11 15:49 | P.PNIM ---
Subjective Interval history: Follow-up visit psychosis, sacral wound, tachycardia. Patient is resting in bed. She is continuing with confabulation. No distress noted. She is scheduled to undergo debridement of her sacral wound this afternoon per Plastic Surgery. Physical Exam Vital signs: Vital Signs 09/10/18 16:57 09/10/18 21:33 09/11/18 05:59 Temperature 98.8 F 98.7 F Pulse Rate 95 H 93 H 92 H Respiratory Rate 18 20 18 Blood Pressure 130/81 157/97 H Pulse Oximetry 91 L 98 91 L 09/11/18 08:45 09/11/18 13:01 Temperature Pulse Rate 88 90 Respiratory Rate 16 16 Blood Pressure Pulse Oximetry Intake & Output 09/10/18 09/11/18 09/11/18 18:59 06:59 18:59 Intake Total 930 / 930 700 / 700 450 / 450 Balance 930 / 930 700 / 700 450 / 450 Intake: IV 450 / 450 700 / 700 450 / 450 Azithromycin Inj 500 MG In NS 250 / 250 Inj 250 ML @ 250 mls/hr IV.SIG Q24H TIFFANIE Rx#:[id number] Zosyn 4.5 GM Premix 4.5 gm In 200 / 200 200 / 200 200 / 200 100 ml @ 200 mls/hr IV.SIG Q6H TIFFANIE Rx#:[id number] Vancomycin Inj 1,000 MG In NS 250 / 250 250 / 250 250 / 250 Inj 250 ML @ 250 mls/hr IV.SIG Q12H TIFFANIE Rx#:[id number] Oral 480 / 480 Other: # Voids 3 Narrative: GENERAL: Well-nourished, well-developed middle-aged female patient in [facility]. SKIN: Warm and dry. No rash. Sacral deep tissue injury. HEENT: Normocephalic. Atraumatic. Pupils equal and round. Mucous membranes pink and moist. NECK: Supple. Trachea midline. CARDIOVASCULAR: regular rhythm and rate. No murmur appreciated. RESPIRATORY: No accessory muscle use. Clear to auscultation. Breath sounds equal bilaterally. 2L NC. GASTROINTESTINAL: Abdomen soft, non-tender, nondistended. Normoactive bowel sounds x4. MUSCULOSKELETAL: No obvious deformities. No calf tenderness. NEUROLOGICAL: Awake and alert, oriented to self and place. No obvious cranial nerve deficits. Moving all extremities spontaneously with generalized weakness. Normal speech. PSYCHIATRIC: Tangential and disorganized thoughts and conversation. Results Labs CBC & Chem 7: 09/11/18 06:46 09/11/18 10:50 Assessment and Plan (1) Unspecified psychosis: Code(s): F29 - Unspecified psychosis not due to a substance or known physiological condition Status: Acute Plan 38-year-old female with history of hypertension, hypothyroidism, anxiety, depression, alcohol abuse, initially admitted to [facility] on 08/26/18 after being found on the ground with altered mental status, previously last seen normal on 08/22/18. During the course of hospitalization, she was intubated , GCS of 10, admitted to ICU for possible Xanax overdose, alcohol intoxication, and rhabdomyolysis. Patient was extubated and transferred to hospital service on 08/30/18, then discharged to inpatient med psych unit on 09/06/18. Hospitalist consulted for medical management of tachycardia and altered mental status. 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 Benzodiazepine overdose/toxic encephalopathy, s/p ICU admission as above -Continue management per psychiatry -ST consulted; patient has cognitive deficits and requires a mechanical soft diet and nectar thick liquids -S/P lumbar puncture on 09/04; CSF studies unremarkable, HSV PCR was negative -EEG with minimal slowing -MRI brain-negative -Slow improvements Acute Alcohol Withdrawal: per EMR, patient has h/o alcohol abuse -Continue [facility] Protocol -Management per psychiatry -LFT's improving, ammonia remains slightly elevated, hold off on Lactulose given ongoing diarrhea. If needed consider Xifaxin if ammonia continues to trend up. -possible hepatic encephalopathy with hx of alcohol abuse Hypokalemia -K 2.7 -replace and recheck this afternoon Rhabdomyolysis/BECK/Electrolyte Abnormalities: resolved, likely secondary to alcohol abuse/suspected Xanax overdose/unknown downtime -Creatinine stable -K 3.5 s/p repletion Tachycardia: Sinus tachycardia on previous EKGs, reviewed by me -Likely due to multiple factors as stated above including dehydration, deconditioning, electrolyte abnormalities -Encourage adequate oral hydration -Echocardiogram 09/01 unremarkable with normal ejection fraction 55-60% -Continue on coreg 6.25mg po bid -HR improved, continue to monitor Transaminitis: likely secondary to alcohol abuse -Abdominal U/S 08/27/18 showed hepatic steatosis, small amount of debris within an otherwise normal-appearing gallbladder -Hepatitis panel was negative -Avoid hepatotoxins -Improving, continue to monitor LFTs, mildly elevated T-bili US with no noted stones, asymptomatic. Sacral Decubitus Ulcer: patient has sacral wound, unknown duration -Wound Care consulted; appreciate recommendations -Reposition every 2 hours -consulted plastic surgery to evaluate for debridement of thick yellow slough. Patient scheduled to undergo debridement this afternoon. Generalized weakness: Likely secondary to recent ICU admission -PT consulted; patient is currently moderate to dependent for mobility; recommends rehab and Neurology consult for loss of proprioception right lower extremity with ROM -Consult neurology -OT consulted; patient is currently minimum to maximum depending on ADL task ; recommends rehab Bilateral leg pain/edema: Patient reports BLE pain and trace edema -09/07: BLE Doppler was negative for DVT -09/07: D-Dimer elevated at 1.91 -CTA chest negative for PE DC full strength Lovenox Possible [facility]CAPNA Hx ICU stay on mechanical ventilation - WBC with slight improvement, but increase in neutrophil count, continues to be on NC, T-max 98.8F over past 24 hrs - continue IV Zosyn and Azithromycin (start 09/08/18) - Schedule duonebs and PRN, IS - Encourage OOB and mobility Loose stools: patient reports continued loose stools -C.diff negative on 08/28 and 09/02 -Check stool enteric pathogens -Lactinex bid Hypertension: Improving -Continue Norvasc 5mg qd and Coreg 6.25mg bid -Monitor BP, adjust antihypertensives as needed Hypothyroidism:chronic -Continue patient's Synthroid DVT Prophylaxis: Lovenox sq Discussed Condition With: Patient and nurse, supervising MD Discharge Planning: Patient will most likely need rehab on discharge. Discharge Planning: per primary team Progress Note: Quality VTE Deep Vein Thrombosis/Pulmonary Embolism Present on Admission: No _ (1) Unspecified psychosis Qualifiers: Psychosis type: Schizoaffective disorder type: Schizophrenia type:
[2018-09-12] MEDS: Azithromycin Inj 500 MG in Sodium Chlor 0.9% Inj 250 ML IV.SIG SCH (01:00)
[2018-09-12] MEDS: Piperacil/Tazo 4.5 GM Premix 4.5 GM/100 ML BAG IV.SIG SCH ×3 (01:00→15:35)
[2018-09-12] MEDS: Levothyroxine 75 MCG Tablet PO SCH (05:18)
[2018-09-12] MEDS ORDERED: Pharmacy Ordered Lab Info OTHER ONE (07:45)
[2018-09-12] MEDS: Carvedilol 6.25 MG Tablet PO SCH (08:40)
[2018-09-12] MEDS: amLODIPine 5 MG Tablet PO SCH (08:40)
[2018-09-12] MEDS: QUEtiapine 25 MG Tablet PO SCH (08:40)
[2018-09-12] MEDS: Enoxaparin Inj 30 MG/0.3 ML Syringe SQ SCH (08:40)
[2018-09-12] MEDS: Senna/Docusate Sodium 8.6/50 MG Tablet PO SCH (10:16)
[2018-09-12] MEDS: Sodium Hypochlorite 0.125% Top Soln 500 ML Bottle IRRIGATION SCH (10:23)
[2018-09-12] MEDS: Collagenase Oint 30 GM Tube TOPICAL SCH (10:23)
[2018-09-12] MEDS: Lactobacillus Acidophilus/L. Spores Tablet PO SCH (10:23)
[2018-09-12] MEDS: Vancomycin Inj 1,000 MG in Sodium Chlor 0.9% Inj 250 ML IV.SIG SCH (11:20)
--- NOTE | 2018-09-12 12:59 | P.PNPSY ---
Subjective Remarks: Patient seen for follow up; chart reviewed. Discussion with nursing staff reported no behavioral changes, continues with confusion and confabulation. Patient found lying on hospital bed, recently working with physical therapy prior to interview. Patient seen and continued to be noted with confusion, A&O to person only, continues with confabulation. She continues to deny depressive, manic or psychotic symptoms. Patient planned for discharge to rehabilitation facility once one is acquired. Primary medical team continues to follow for onging medical issues. Patient denies SI, HI, AVH or delusions. Review of Systems All other systems reviewed negative except as stated in HPI Mental Status Examination Appearance: Appropriate Consciousness: Alert Orientation: Person Motor Activity: Normal gait Speech: Unremarkable Language: Adequate Fund of Knowledge: Adequate Attention and Concentration: Adequate Memory: Impaired Mood: Appropriate Affect: Appropriate Thought Process & Associations: Loose associations, Disorganized (At times), Tangential Thought Content: Bizarre thinking, Other (Confabulation) Hallucination Type: None Delusion Type: None Suicidal Ideation: No Suicidal Plan: No Suicidal Intention: No Homicidal Ideation: No Homicidal Plan: No Homicidal Intention: No Insight: Poor Judgment: Poor Assessment and Plan - Assessment (1) Unspecified psychosis Code(s): F29 - Unspecified psychosis not due to a substance or known physiological condition Status: Acute - Plan Plan: Patient continues confusion and confabulation, noted neurocognitive deficits; continues to deny any mood or psychotic symptoms. Continue recommendations as per primary medical team. Continue current treatment, continue to monitor mood and behavior. Discharge planning in progress. Justification for Continued Inpatient Stay: At risk for further decompensation at lower level of care.
[2018-09-12] MEDS ORDERED: Povidone Iodine 10% Top Soln 118 ML Bottle TOPICAL SCH (14:00)
--- NOTE | 2018-09-12 14:03 | MP ---
cc: Stephania Pelaez MD DATE OF OPERATION: 09/12/2018 PREOPERATIVE DIAGNOSIS: Sacral decubitus ulcer. POSTOPERATIVE DIAGNOSIS: Sacral decubitus ulcer. PROCEDURE PERFORMED: Excisional debridement down to the muscle layer of sacral wound. ANESTHESIA: None. SURGEON: Stephania Pelaez MD INDICATIONS: A 38-year-old female who was apparently at home in a coma on her back. This may have been from a drug overdose. The patient developed this ulcer and tissue. FINDINGS: The skin was completely necrotic and measured 3 cm x 7 cm in greatest dimension. Subcutaneous tissue and muscle were also partially necrotic. The debridement was done at bedside down to partially viable muscle. The total amount that was done was the amount that was able to be done without local anesthesia. The patient tolerated the procedure well. DESCRIPTION OF PROCEDURE: This procedure was performed at the bedside. The area was prepped with a Betadine. A sharp scissor was used to excise the skin which measured 3 cm x 7 cm. Once the skin was excised the tissue underneath was found to be . This was subcutaneous tissue. This was also removed and we went down into the muscle layer where there was also muscle. When the tissue began to look as if there was a little bit better perfused, we finished; cleanse the area with povidone iodine solution and dressed with Betadine ointment and Calazime to the peripheral area. Additional Calazime was placed on the patient's buttocks where there was evidence of candidiasis. Wound care orders will be written. The patient may require additional surgical intervention in the future. MD MELODY Esteban/lupe , 01:47 PM , 01:54 PM [facility]ITALTeodoro
--- NOTE | 2018-09-12 14:17 | MB ---
cc: Stephania Pelaez MD DATE: 09/12/2018 REQUESTING PHYSICIAN: The patient is being seen at the request of Dr. Ezio Cadet. REASON FOR CONSULTATION: Sacral wound. HISTORY OF PRESENT ILLNESS: The patient is a 38-year-old female who was admitted on 09/06/2018. The record indicates that the patient was admitted to the intensive care unit for possible Xanax overdose, alcohol intoxication, and rhabdomyolysis. The patient was evaluated. It was noted that she had a sacral decubitus ulcer. This occurred while she was at home. PAST MEDICAL HISTORY: Obtained from the chart. There is a history of alcohol abuse, anxiety and depression. She is a former smoker. MEDICATIONS: Listed on the chart. PHYSICAL EXAMINATION: GENERAL: The patient is seen in our unit. VITAL SIGNS: Her temperature is 99.0, respirations 20, blood pressure 135/87 with a mean of 103. Pulse oximetry is 95 on room air. HEENT: Extraocular muscles are intact. Pupils are equal, round and reactive to light. Her mouth is clear. NECK: Supple without masses. LUNGS: Clear. HEART: Has a regular rate and rhythm. EXTREMITIES: Examination of the sacral area reveals a rectangular-shaped area of skin. There is no evidence of cellulitis. There is no odor. There is some drainage. The wound measures 3 x 7 cm. IMPRESSION: The patient has a sacral decubitus ulcer. PLAN: Debridement. This will be performed at the bedside. MD MELODY Esteban/rogelio , 01:45 PM , 01:52 PM
--- NOTE | 2018-09-12 15:37 | P.DSPSY ---
Psychiatry Discharge Summary Inpatient Psychiatric care?: Yes Advance Directives: No Mental Health Advance Directive: No Health Care Proxy: No - Admission Admission Date: September 06, 2018 16:20 - Admission Diagnosis (1) Unspecified psychosis Code(s): F29 - Unspecified psychosis not due to a substance or known physiological condition Brief History: 08/30/2018 The patient is a 38-year-old woman, domiciled in [place], single, no kids, employed, with a psychiatric history of anxiety, no previous psychiatric hospitalizations, no pre-suicide attempts, alcohol use disorder, she is on Xanax 1 mg 3 times daily prescribed by PCP, medical history of hypertension, who has been depressed recently after the of her father presents for an evaluation of altered mental status. Her friend and neighbor went over to check on her and found her on the ground. She states the dog that was in the house had peed in the house multiple times which is unusual. She was last seen normal Saturday which was 5 days ago. The patient apparently has prescriptions for Xanax. No other history is readily available as the patient' s initial GCS for paramedics was 11. In the emergency department her GCS was 10 and she was intubated for an airway protection by ED attending. Patient was intubated yesterday. Renal function is improving with Cr: 2.45 from 3.57. She was consulted to psychiatry to address suicidal ideation. On my psychiatric evaluation I found the patient alert, calm, superficially cooperative. The patient is quite confused, she answered questions, but she seems to be not reliable. She tells me that she is in the brother house. Tells me that she is now in [facility] and she is here at her brother's house in a family meeting. She does not know the reason of hospitalization. Patient is completely disoriented in time and place. She tells me that we are in January 14, 1991. She does report to be in a good mood, he denies use of alcohol and misuse of Xanax. She actually tells me that she does not use any alcohol. She denies suicidal and homicidal ideation, she denies visual and auditory hallucinations. At times the patient seems to be a little bit expansive, with cleopatra loosening of associations and poor contact with reality. There is also some attention deficit and fluctuation of consciousness. Collateral information from her sister aDksha Hernandez, , who reports that the patient has been depressed since April when her father . She says that her sister has been down the heel, drinking more alcohol every day and most probably misusing Xanax. She reports that this is the first time that the patient becomes so altered and psychotic. She says that the patient does not have any reports a psychiatric history. 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 09/03/2018 The patient was seen today for psychiatric reevaluation. She was in the process of getting physical therapy. Ro, next of kin, was at bedside. My psychiatric evaluation the patient continues to show labile mood, she seems to be more organized and cooperative than before, but still disorganized, with moments of confusion, tangentiality, delusional thinking, but able to report good mood, denies depression, denies anxiety, denies melina and psychosis. She denies suicidal and homicidal ideation, denies visual and auditory hallucinations. As per Ro, the patient definitely much improved , she clarifies that the patient has being increasingly drinking more alcohol lately, she has been depressed the last month, but usually the patient has a very good sense of humor. She also confirms that the patient at times seems to be quite confused and psychotic. 09/06/2017 patient was seen today for psychiatric evaluation in the [facility] psych unit. The patient continues to be disorganized, quite tangential, with a very inappropriate affect. She reports to feel very happy, she says that she does not remember the reason she is here for. She says that she is here to poultry picker her dog and basis of friends. She is oriented in person, disoriented in time and place. She thinks that we are in June 1984. On Mini-Mental the patient is able to repeat 3 words, remembered 2 of then 5 minutes later. She shows a good registration, good abstraction, naming, but decreased concentration , impaired executive function. Final score is 22/30. She denies suicidal and homicidal ideation, she denies visual and auditory hallucinations. I try to speak with the patient about suicidal attempt by overdosing with alcohol and Xanax, but she is unable to recall any information about that event. PPHx: Anxiety, she is on Xanax 1 mg 3 times daily, prescribed by PCP, no pre- suicide attempts, no previous psychiatric hospitalization PMHx: Hypertension Family Hx: No family psychiatric Substance Hx: She drinks alcohol Social Hx: Patient was born and raised in [facility], she is single , domiciled in [place], no kids, employed, her highest level of education is a nursing degree Tobacco Use In Past 30 Days: No How Often Do You Have a Drink Containing Alcohol: Unable to Obtain Hospital Course: The patient is a 38-year-old woman, domiciled in [place], single, employed, with a psychiatric history of anxiety, no previous psychiatric hospitalizations, no pre-suicide attempts, alcohol use disorder, she is on Xanax 1 mg 3 times daily prescribed by PCP, medical history of hypertension, who has been depressed recently after the of her father presents for an evaluation of altered mental status and upon evaluation was noted to be confused , disorganized, disoriented, most of her communication is through confabulations with loosening of associations, poor contact with the reality, observed by nursing staff to be responding to internal stimuli and talking with people that are not present which patient was admitted to the inpatient psychiatry for further evaluation and management. Patient was admitted to a locked, inpatient psychiatric unit. Appropriate precautions were in place throughout patient's hospital stay. Patient was seen and examined on the unit by psychiatry. Psychotropic medications were adjusted. There was no evidence of any suicidality or homicidality on the inpatient unit. Patient was noted to have continued disorientation and confabulation not related to primary psychotic disorder but likely secondary to recent medical causes resulting in cognitive impairment which seemed to persist throughout hospital stay. Patient continued to deny any depressive symptoms denied any suicidal homicidal ideation which family close friends also doubting patient had attempted to end her life. Patient continues to require further medical stabilization and management which patient will be discharged to the medical floor for continued medical services with subsequent transfer or discharge to rehabilitation program once medically cleared. Patient at this time does not meet further criteria for inpatient psychiatric hospitalization and will be discharged to medical service for continued care as stated above. On the day of discharge: Patient seen and examined; chart reviewed. Case discussed with nurse and counselor. No behavioral issues overnight. On my examination today, the patient denies any suicidal homicidal ideation, intent or plan on direct questioning and contracts for safety. Patient denies any perceptional disturbances and no delusional material verbalized today. Patient denies any side effects from medication. Patient continues with neurocognitive deficits as stated above. No physical complaints. Suicide and violence risk assessment on day of discharge both suggest lower imminent risk. Patient has maximized benefit from this inpatient psychiatric hospital stay and will be discharged to medical service for continued medical management. - Discharge Discharge Date: 09/12/18 - Discharge Diagnosis (1) Unspecified psychosis Code(s): F29 - Unspecified psychosis not due to a substance or known physiological condition Status: Acute Discharge Disposition: Patient be discharged to the medical service. - Discharge Instructions Discharge Diet: Heart Healthy Diet Activities You Can Perform: Weight Bearing As Tolerat - Discharge Time > 30 minutes Mental Status Examination Appearance: Appropriate Consciousness: Alert Orientation: Person Motor Activity: Normal gait Speech: Unremarkable Language: Adequate Fund of Knowledge: Adequate Attention and Concentration: Adequate Memory: Impaired Mood: Appropriate Affect: Appropriate Thought Process & Associations: Loose associations, Disorganized (At times), Tangential Thought Content: Bizarre thinking, Other (Confabulation) Hallucination Type: None Delusion Type: None Suicidal Ideation: No Suicidal Plan: No Suicidal Intention: No Homicidal Ideation: No Homicidal Plan: No Homicidal Intention: No Insight: Poor Judgment: Poor Discharge/Advance Care Plan - Results Vital Signs: Last Vital Signs Temp 98.3 F 09/12/18 06:19 Pulse 94 H 09/12/18 13:37 Resp 18 09/12/18 13:37 BP 151/92 H 09/12/18 13:34 Pulse Ox 94 L 09/12/18 13:38 Lab Results: Abnormal Lab Results 09/11/18 09/12/18 09/12/18 18:52 05:18 10:20 Potassium 3.7 D Creatinine 0.77 Estimated GFR 83 L Vancomycin Trough 13.4 H Laboratory Results Hemoglobin A1c 4.9 % (4.3-6.0) 09/07/18 09:16 Triglycerides 187 mg/dL (42-150) H 09/07/18 09:16 Cholesterol 154 mg/dL (120-200) 09/07/18 09:16 LDL Cholesterol, Calc 94 mg/dL (0-99) 09/07/18 09:16 HDL Cholesterol 23.1 mg/dL (40.0-60.0) L 09/07/18 09:16 Summary of Procedures: none Imaging: ITS Impressions Chest CTA 09/07/18 00:00 CONCLUSION: 1. Bilateral lower lobe infiltrates right greater than left. Bilateral pleural effusions right greater left. No evidence of pulmonary embolism Venous Doppler Study 09/07/18 00:00 CONCLUSION: 1. The study is negative for bilateral lower extremity deep venous thrombosis. Cervical Spine MRI 09/10/18 18:03 CONCLUSION: 1. Negative MRI of the cervical spine Head MRI 09/10/18 18:03 CONCLUSION: 1. Negative exam with no evidence of hemorrhage, mass or stroke. Lumbar Spine MRI 09/10/18 18:03 CONCLUSION: 1. Negative MRI of the lumbar spine Thoracic Spine MRI 09/10/18 18:09 CONCLUSION: 1. Small bilateral pleural effusions, otherwise negative. Signal intensity cord is normal. I do not see an etiology of patient's generalized weakness. Pending Results: None - Medications Number of antipsychotic medications at discharge: 1 - Discharge Care Plan Goals to Promote Your Health: * To prevent worsening of your condition and complications * To maintain your health at the optimal level Directions to Meet Your Goals: Take your medications as prescribed Follow your dietary instruction Follow activity as directed Keep your appointments as scheduled Take your immunizations and boosters as scheduled If your symptoms worsen call your PCP, if no PCP go to Urgent Care Center or Emergency Room For 18/02 questions related to your inpatient stay or results of tests pending at discharge, please contact Dr. Ezio Cadet MD at Smoking is Dangerous to Your Health. Avoid second hand smoking
[2018-09-12] MEDS ORDERED: Nystatin 100,000 UNITS/GM Powder 15 GM Bottle TOPICAL SCH (16:00)
--- NOTE | 2018-09-12 16:19 | P.HPIM ---
History of Present Illness Service: [facility] Primary Care Physician: UNKNOWN Diagnosis (1) Unspecified psychosis: Inpatient Certification Inpatient Certification: I certify that the inpatient services were ordered in accordance with Medicare regulations governing the order. This includes certification that hospital inpatient services are reasonable and necessary and in the case of services not specified as inpatient-only under 42 CFR 419.22(n), that they are appropriately provided as inpatient services in accordance to with the 2-midnight benchmark under 43 CFR 412.3(e) Estimated Total Length of Stay (Days): 7 Plans for Post Hospital Care: Home [facility] Medical History Medical History Alcohol abuse (Acute) Anxiety (Acute) Depression (Acute) Medical history unknown (Inactive) Surgical history unknown (Inactive) Family History Family History Other Family history normal Social History Social History Substance History: Active Abuse Second Hand Smoke Exposure: No Smoking Status: Former smoker Tobacco Type: Cigarettes Cigarettes Per Day: 15 Smoking End Date: Quit 10 years ago How Often Do You Have a Drink Containing Alcohol: Unable to Obtain Hx Recent Travel: No Substance Abuse Detail Alcohol: Substance Use Status: Active Substance Frequency: 3-4 glasses of wine daily Substance Abuse Comment: Patient stated she consumes 3-4 glasses of wine daily. Immunization History Tetanus Immunization: Unable to Assess Hx Influenza Vaccine This Season: Unable to Assess Medications and Allergies Allergies Allergy/AdvReac Type Severity Reaction Status Date / Time No Known Allergies Allergy Uncoded 04/18/15 15:02 Home Medications Medication Instructions Recorded Confirmed Type carvedilol 6.25 mg PO BID 09/03/18 09/03/18 History levothyroxine 75 mcg PO DAILY 09/03/18 09/03/18 History Active Medications: Active Medications Al Hydrox/Mg Hydrox/Simethicone (Mag-Al Plus Susp Liq) 30 ml PO Q6H PRN PRN Reason: DYSPEPSIA Al Hydroxide/Mg Hydroxide (Milk Of Magnesia Liq) 30 ml PO Q12H PRN PRN Reason: Mild Constipation Albuterol (Duoneb Neb (Prn)) 1 ampul NEB Q2HR NEB PRN PRN Reason: SHORTNESS OF BREATH/WHEEZING Last Admin: 09/09/18 04:22 Dose: 1 ampul Amlodipine Besylate (Norvasc) 5 mg PO DAILY [facility] Last Admin: 09/12/18 08:40 Dose: 5 mg Bisacodyl (Dulcolax Supp) 10 mg RECTAL DAILY PRN PRN Reason: SEVERE CONSITIPATION Carvedilol (Coreg) 6.25 mg PO BID [facility] Last Admin: 09/12/18 08:40 Dose: 6.25 mg Clonidine HCl (Catapres) 0.2 mg PO TID [facility] Last Admin: 09/12/18 13:33 Dose: 0.2 mg Collagenase (Santyl Oint) 1 applicatio TOPICAL DAILY [facility] Last Admin: 09/12/18 10:23 Dose: Not Given Enoxaparin Sodium (Lovenox Inj) 30 mg SQ DAILY [facility] Last Admin: 09/12/18 08:40 Dose: 30 mg Guaifenesin/Dextromethorphan (Robitussin Dm Liq) 10 ml PO Q4H PRN PRN Reason: cough interfering with rest Piperacillin/Tazobactam/Dextrose (Zosyn 4.5 Gm Premix) 4.5 gm in 100 mls @ 200 mls/hr IV.SIG Q6H [facility] Last Admin: 09/12/18 15:35 Dose: 200 mls/hr Azithromycin 500 mg/ Sodium (Chloride) 250 mls @ 250 mls/hr IV.SIG Q24H [facility] Last Infusion: 09/12/18 06:06 Dose: Infused Vancomycin HCl 1,000 mg/ (Sodium Chloride) 250 mls @ 250 mls/hr IV.SIG Q12H [facility] Last Admin: 09/12/18 11:20 Dose: 250 mls/hr Lactobacillus Acidophilus (Lactinex) 1 tab PO BID [facility] Last Admin: 09/12/18 10:23 Dose: Not Given Lactulose (Lactulose Liq) 30 ml PO DAILY PRN PRN Reason: SEVERE CONSITIPATION Levothyroxine Sodium (Synthroid) 75 mcg PO DAILY@0600 [facility] Last Admin: 09/12/18 05:18 Dose: 75 mcg Nystatin (Mycostatin Powder) 1 applicatio TOPICAL DAILY [facility] Pharmacy Profile Note (Vancomycin Consult Pharmacy) 1 each OTHER UNSCH PRN PRN Reason: Pharmacy to dose Povidone Iodine (Betadine 10% Top Soln) 1 applicatio TOPICAL DAILY [facility] Quetiapine Fumarate (Seroquel) 50 mg PO BID [facility] Last Admin: 09/12/18 08:40 Dose: 50 mg Senna/Docusate Sodium (Pamela-Colace) 1 tab PO BID [facility] Last Admin: 09/12/18 10:16 Dose: Not Given Sennosides (Senokot) 17.2 mg PO Q12H PRN PRN Reason: Moderate Constipation Sodium Hypochlorite (Dakin's 0.125% Top Soln) 500 ml IRRIGATION DAILY [facility] Last Admin: 09/12/18 10:23 Dose: Not Given Thiamine HCl (Vitamin B1) 100 mg PO DAILY [facility] Last Admin: 09/12/18 08:40 Dose: 100 mg Physical Exam Vital signs: Vital Signs 09/11/18 18:49 09/12/18 06:19 09/12/18 07:58 Temperature 99.0 F 98.3 F Pulse Rate 92 H 97 H Respiratory Rate 20 18 18 Blood Pressure 135/87 155/105 H Pulse Oximetry 94 L 94 L 09/12/18 07:59 09/12/18 10:33 09/12/18 13:34 Temperature Pulse Rate 88 92 H Respiratory Rate Blood Pressure 135/97 H 151/92 H Pulse Oximetry 97 09/12/18 13:37 09/12/18 13:38 Temperature Pulse Rate 94 H Respiratory Rate 18 Blood Pressure Pulse Oximetry 94 L Intake & Output 09/11/18 09/12/18 09/12/18 18:59 06:59 18:59 Intake Total 450 / 450 1040 / 1040 100 / 100 Balance 450 / 450 1040 / 1040 100 / 100 Intake: IV 450 / 450 700 / 700 100 / 100 Azithromycin Inj 500 MG In NS 250 / 250 Inj 250 ML @ 250 mls/hr IV.SIG Q24H [facility] Rx#:[id number] Zosyn 4.5 GM Premix 4.5 gm In 200 / 200 200 / 200 100 / 100 100 ml @ 200 mls/hr IV.SIG Q6H [facility] Rx#:[id number] Vancomycin Inj 1,000 MG In NS 250 / 250 250 / 250 Inj 250 ML @ 250 mls/hr IV.SIG Q12H [facility] Rx#:[id number] Oral 240 / 240 0 / 0 Oral Supplement 100 / 100 Other: # Voids 4 # Bowel Movements 3 Narrative: GENERAL: Well-nourished, well-developed middle-aged female patient in NAD. SKIN: Warm and dry. No rash. Sacral deep tissue injury. HEENT: Normocephalic. Atraumatic. Pupils equal and round. Mucous membranes pink and moist. NECK: Supple. Trachea midline. CARDIOVASCULAR: regular rhythm and rate. No murmur appreciated. RESPIRATORY: No accessory muscle use. Clear to auscultation. Breath sounds equal bilaterally. 2L NC. GASTROINTESTINAL: Abdomen soft, non-tender, nondistended. Normoactive bowel sounds x4. MUSCULOSKELETAL: No obvious deformities. No calf tenderness. NEUROLOGICAL: Awake and alert, oriented to self and place. No obvious cranial nerve deficits. Moving all extremities spontaneously with generalized weakness. Normal speech. PSYCHIATRIC: Tangential and disorganized thoughts and conversation. Results Labs CBC & Chem 7: 09/11/18 06:46 09/12/18 05:18 Caprini VTE Risk Assessment Caprini Risk Assessment Model: Point Value = 1 Point Value = 2 Point Value = 3 Point Value = 5 Age 41-60 Minor surgery BMI > 25 kg/m2 Swollen legs Varicose veins or History of unexplained or recurrent spontaneous Oral contraceptives or hormone replacement Sepsis (< 1 month) Serious lung disease, including pneumonia (< 1 month) Abnormal pulmonary function Acute myocardial infarction Congestive heart failure (< 1 month) History of inflammatory bowel disease Medical patient at bed rest Age 61-74 Arthroscopic surgery Major open surgery (> 45 min) Laparoscopic surgery (> 45 min) Malignancy Confined to bed (> 72 hours) Immobilizing plaster cast Central venous access Age >= 75 History of VTE Family history of VTE Factor V Leiden Prothrombin 42168H Lupus anticoagulant Anticardiolipin antibodies Elevated serum homocysteine Heparin-induced thrombocytopenia Other congenital or acquired thrombophilia Stroke (< 1 month) Elective arthroplasty Hip, pelvis, or leg fracture Acute spinal cord injury (< 1 month) Prophylaxis Regimen: Total Risk Factor Score Risk Level Prophylaxis Regimen 0-1 Low Early ambulation 2 Moderate Order ONE of the following: *Sequential Compression Device (SCD) *Heparin 5000 units SQ BID 3-4 Higher Order ONE of the following medications: *Heparin 5000 units SQ TID *Enoxaparin/Lovenox 40 mg SQ daily (WT < 150 kg, CrCl > 30 mL/min) *Enoxaparin/Lovenox 30 mg SQ daily (WT < 150 kg, CrCl > 10-29 mL/min) *Enoxaparin/Lovenox 30 mg SQ BID (WT < 150 kg, CrCl > 30 mL/min) AND/OR *Sequential Compression Device (SCD) 5 or more Highest Order ONE of the following medications: *Heparin 5000 units SQ TID (Preferred with Epidurals) *Enoxaparin/Lovenox 40 mg SQ daily (WT < 150 kg, CrCl > 30 mL/min) *Enoxaparin/Lovenox 30 mg SQ daily (WT < 150 kg, CrCl > 10-29 mL/min) *Enoxaparin/Lovenox 30 mg SQ BID (WT < 150 kg, CrCl > 30 mL/min) AND *Sequential Compression Device (SCD) Assessment and Plan (1) Unspecified psychosis: Code(s): F29 - Unspecified psychosis not due to a substance or known physiological condition Status: Acute Plan 38-year-old female with history of hypertension, hypothyroidism, anxiety, depression, alcohol abuse, initially admitted to [facility] on 08/26/18 after being found on the ground with altered mental status, previously last seen normal on 08/22/18. During the course of hospitalization, she was intubated , GCS of 10, admitted to ICU for possible Xanax overdose, alcohol intoxication, and rhabdomyolysis. Patient was extubated and transferred to hospital service on 08/30/18, then discharged to inpatient med psych unit on 09/06/18. Hospitalist consulted for medical management of tachycardia and altered mental status. 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 Benzodiazepine overdose/toxic encephalopathy, s/p ICU admission as above -Continue management per psychiatry -ST consulted; patient has cognitive deficits and requires a mechanical soft diet and nectar thick liquids -S/P lumbar puncture on 09/04; CSF studies unremarkable, HSV PCR was negative -EEG with minimal slowing -MRI brain-negative -Slow improvements Acute Alcohol Withdrawal: per EMR, patient has h/o alcohol abuse -Continue [facility] Protocol -Management per psychiatry -LFT's improving, ammonia remains slightly elevated, hold off on Lactulose given ongoing diarrhea. If needed consider Xifaxin if ammonia continues to trend up. -possible hepatic encephalopathy with hx of alcohol abuse Hypokalemia -K 2.7 -replace and recheck this afternoon Rhabdomyolysis/BECK/Electrolyte Abnormalities: resolved, likely secondary to alcohol abuse/suspected Xanax overdose/unknown downtime -Creatinine stable -K 3.5 s/p repletion Tachycardia: Sinus tachycardia on previous EKGs, reviewed by me -Likely due to multiple factors as stated above including dehydration, deconditioning, electrolyte abnormalities -Encourage adequate oral hydration -Echocardiogram 09/01 unremarkable with normal ejection fraction 55-60% -Continue on coreg 6.25mg po bid -HR improved, continue to monitor Transaminitis: likely secondary to alcohol abuse -Abdominal U/S 08/27/18 showed hepatic steatosis, small amount of debris within an otherwise normal-appearing gallbladder -Hepatitis panel was negative -Avoid hepatotoxins -Improving, continue to monitor LFTs, mildly elevated T-bili US with no noted stones, asymptomatic. Sacral Decubitus Ulcer: patient has sacral wound, unknown duration -Wound Care consulted; appreciate recommendations -Reposition every 2 hours -consulted plastic surgery to evaluate for debridement of thick yellow slough. Patient scheduled to undergo debridement this afternoon. Generalized weakness: Likely secondary to recent ICU admission -PT consulted; patient is currently moderate to dependent for mobility; recommends rehab and Neurology consult for loss of proprioception right lower extremity with ROM -Consult neurology -OT consulted; patient is currently minimum to maximum depending on ADL task ; recommends rehab Bilateral leg pain/edema: Patient reports BLE pain and trace edema -09/07: BLE Doppler was negative for DVT -09/07: D-Dimer elevated at 1.91 -CTA chest negative for PE DC full strength Lovenox Possible HCAPNA Hx ICU stay on mechanical ventilation - WBC with slight improvement, but increase in neutrophil count, continues to be on NC, T-max 98.8F over past 24 hrs - continue IV Zosyn and Azithromycin (start 09/08/18) - Schedule duonebs and PRN, IS - Encourage OOB and mobility Loose stools: patient reports continued loose stools -C.diff negative on 08/28 and 09/02 -Check stool enteric pathogens -Lactinex bid Hypertension: Improving -Continue Norvasc 5mg qd and Coreg 6.25mg bid -Monitor BP, adjust antihypertensives as needed Hypothyroidism:chronic -Continue patient's Synthroid DVT Prophylaxis: Lovenox sq Discussed Condition With: Patient and nurse, supervising MD Discharge Planning: Patient will most likely need rehab on discharge. Discharge Planning: per primary team H&P: Quality VTE Deep Vein Thrombosis/Pulmonary Embolism Present on Admission: No _ (1) Unspecified psychosis Qualifiers: Psychosis type: Schizoaffective disorder type: Schizophrenia type:
[2018-09-15 03:52] LABS: DS DNA Ab (Crithidia) NEGATIVE (NEGATIVE)
== END 2018-09-12 17:45 | disposition short-term general hospital (02) | DRG 876 ==
LOC: H4EA 16:20
PROVIDERS: ADMIT Student in an Organized Health Care Education/Training Program; ATTEND Student in an Organized Health Care Education/Training Program
CPT/HCPCS: 70553; 71275; 72148; 72156; 72157; 80048; 80053; 80061; 80202; 82140; 82565; 83036; 83735; 83918; 83921; 84132; 84165; 84446; 84703; 85025; 85379; 85651; 85652; 86038; 86039; 86140; 86225; 86235; 86255; 86431; 86592; 87389; 87506; 93970; 94150; 94640; 94664; 94665; 97110; 97162; 97530; A9585; J0456; J1650; J2543; J3370; J7050; Q9967